=== PATIENT | male | born 2000 | race Caucasian/White ===

== ENCOUNTER 2019-06-10 22:09 | Inpatient (IN) ==
[2019-06-10 23:07] LABS: Basophils # (auto) 0.02 K/uL (0-0.2); Basophils % (auto) 0.3 %; Eosinophils # (auto) 0.09 K/uL (0-0.5); Eosinophils % (auto) 1.4 %; Hematocrit (blood only) 49.2 % (42-52); Hemoglobin 16.4 g/dL (14.0-18.0); Immature Granulocytes # (auto) 0.01 K/uL (0.00-0.02); Immature Granulocytes % (auto) 0.2 %; Lymphocytes # (auto) 1.58 K/uL (1.2-3.4); Lymphocytes % (auto) 24.6 %; Mean Corpuscular Hemoglobin 26.3 pg (25-34); Mean Corpuscular Hgb Conc 33.3 g/dL (32-36); Mean Corpuscular Volume 78.8 fL (80-100); Mean Platelet Volume 9.9 fL (7.4-10.4); Monocytes # (auto) 0.67 K/uL (0.11-0.59); Monocytes % (auto) 10.4 %; Neutrophils # (auto) 4.05 K/uL (1.4-6.5); Neutrophils % (auto) 63.1 %; Platelet Count 281 K/uL (130-400); RDW Coefficient of Variation 13.8 % (11.5-14.5); RDW Standard Deviation 39.5 fL (36.4-46.3); Red Blood Count 6.24 M/uL (4.7-6.1); White Blood Count 6.42 K/uL (4.8-10.8)
[2019-06-10 23:11] LABS: Appearance Urine Clear (Clear); Bacteria Urine Automated Negative (Negative); Bilirubin Urine Negative (Negative); Blood Urine Negative (Negative); Color Urine Dark Yellow; Glucose Urine UA Negative (Negative); Ketones Urine Negative (Negative); Leukocyte Esterase Urine Negative (Negative); Nitrite Urine Negative (Negative); Protein Urine Trace (Negative); RBC Urine Automated 0-4 /hpf (0-4); Specific Gravity Urine 1.031 (1.000-1.030); Urobilinogen Urine Negative (Negative)
[2019-06-10 23:21] LABS: Potassium 3.5 mmol/L (3.5-5.1)
[2019-06-10 23:25] LABS: Albumin Level 4.2 gm/dl (3.4-5.0); BUN Creatinine Ratio 16.3 (10-20); Calcium 9.3 mg/dl (8.5-10.1); Creatinine Clr Calc Pharmacy 143.3 ml/min; Est GFR (African American) 142.7; Est GFR (Non-African American) 123.1
[2019-06-10 23:27] LABS: Amphetamines+Metham, Urine Neg (Neg); Barbiturates, Urine Neg (Neg); Benzodiazepine, Urine Neg (Neg); Cocaine, Urine Neg (Neg); MDMA (Ecstacy), Urine Neg (Neg); Methadone, Urine Neg (Neg); Opiate, Urine Neg (Neg); Phencyclidine, Urine Neg (Neg)
[2019-06-10 23:39] LABS: Acetaminophen < 2 ug/ml (10-30); Salicylate < 1.7 mg/dl (2.8-20)
[2019-06-10] MEDS ORDERED: ONDANSETRON 4 MG OD TAB PO STA (23:40)
[2019-06-10] MEDS ORDERED: GI COCKTAIL ED USE PO ONE (23:40)
[2019-06-10 23:43] LABS: Albumin Globulin Ratio 1.3 (0.9-2); Bilirubin,Total 0.9 mg/dl (0.2-1); Globulin 3.3 gm/dl (2.5-4.0); Thyroid Stimulating Hormone 2.66 uIu/ml (0.300-4.500); Total Protein 7.5 gm/dl (6.4-8.2)
[2019-06-11] MEDS ORDERED: SODIUM CHLORIDE 0.9% 1000ML 1,000 ML IV ONE (00:15)
--- NOTE | 2019-06-11 01:18 | History & Physical Report ---
Date of Service June 11, 2019 Assessment & Plan (1) Suicidal thoughts: Patient will be admitted to the medical service, with a psychiatry consult. One-to-one observation ordered. We will continue Lexapro 5 mg daily, with other medications being held. Present on Admission?: Yes (2) Rhabdomyolysis: Patient was admitted for rhabdomyolysis from 05/05-05/06/2018. Peak CK at that time was 11,461, that did normalize to 204 on 06/04/2018. Most recent CK on 04/25/2019 was 222. CK today is 3355. Rehydrate with IV fluids. Recheck laboratories in a.m. Present on Admission?: Yes (3) Helicobacter pylori (H. pylori): Reports that he recently can treated treatment about 2 weeks ago, but is having recurring nausea symptoms at this time. For now placed on famotidine 20 mg p.o. twice daily Present on Admission?: Yes (4) Nausea: Likely combination of anxiety and H. pylori gastritis. Continue Ativan 1 mg p.o., making 3 times daily as needed. Present on Admission?: Yes History of Present Illness Chief Complaint: The patient presents to the emergency department with worsening anxiety with depression, nausea, insomnia and suicidal ideation. Primary Care Provider: [facility] The patient is a 18-year-old male with a past medical history including anxiety, depression, ADD and rhabdomyolysis, who presents to the emergency department with worsening symptoms over the past 2 weeks. He had initially presented for a mental health evaluation, laboratories revealed recurrent rhabdomyolysis, patient was referred for medical evaluation. Allergies Allergy/AdvReac Type Severity Reaction Status Date / Time lavender (Lavandula Allergy Mild Rash Unverified 04/25/19 11:51 angustifolia) Home Medications Home Medications Medication Instructions Recorded Confirmed Type dextroamphetamine-amphetamine 20 mg PO DAILY 04/25/19 06/10/19 History [Adderall XR] escitalopram oxalate [Lexapro] 5 mg PO DAILY 04/25/19 06/10/19 History lisdexamfetamine [Vyvanse] 30 mg PO DAILY 04/25/19 06/10/19 History lorazepam 1 mg PO DAILY PRN 04/25/19 06/10/19 History Past Med/Surg History Medical History ADHD Social History Preferred Language: Macedonian Communication Ability: Effective 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 Beliefs That Will Affect Care: None Current Living Situation: Alone Feels Safe at Home: No Safety Concerns: Afraid for Self Smoking Status: Never smoker Tobacco Type: cigarettes ; Hx Alcohol Use: Yes Alcohol type: hard liquor Hx Substance Use: Yes substance use type: marijuana Review of Systems Review of Systems: The patient denies chest pain, palpitations, shortness of breath, dyspnea on exertion, cough, lower extremity swelling, sore throat, fevers, chills, sweats, weight change, vomiting, pelvic pain, blood in urine or stool, dysuria, urinary frequency or urgency, lightheadedness, dizziness, headache, memory loss, loss of consciousness, rash, abnormal bruising or bleeding, imbalance, focal or generalized weakness, numbness or tingling in arms or legs, generalized arthralgias or myalgias, back or neck pain, or night sweats. The review of systems is otherwise negative other than for that already noted above, and at least 10 systems have been reviewed. Physical Exam Physical Exam: The patient is awake, alert and oriented 3, well developed and well nourished, normocephalic and atraumatic, lying in bed and in no acute distress. HEENT--PERRL, EOMI, mucous membranes and oropharynx dry. Neck--supple. No JVD. No bruits. Thyroid normal, trachea midline, no adenopathy. Heart--normal S1 and S2. No murmurs, rubs or gallops. Lungs--clear bilaterally, no respiratory distress, no accessory muscle use. Abdomen--normal bowel sounds and soft. Nontender. Nondistended, no hernias or masses, no organomegaly. Extremities--no cyanosis or clubbing. No edema. There are good distal pulses b/l. Dermatologic--normal skin turgor, normal color, no abnormal lymph nodes, no rash. Neurologic--cranial nerves II through XII grossly intact. Rheumatologic--normal range of motion. Psychiatric--normal affect. Results & Data Vital Signs (Past 12 Hours) Vital Signs Temp Pulse Pulse Resp BP BP Pulse Ox 06/11/19 00:29 86 19 127/87 98 06/10/19 22:16 98.1 F 109 H 18 156/83 H 98 Laboratory Results Laboratory Results WBC 6.42 K/uL (4.8-10.8) 06/10/19 22:51 RBC 6.24 M/uL (4.7-6.1) H 06/10/19 22:51 Hgb 16.4 g/dL (14.0-18.0) 06/10/19 22:51 Hct 49.2 % (42-52) 06/10/19 22:51 MCV 78.8 fL (80-100) L 06/10/19 22:51 MCH 26.3 pg (25-34) 06/10/19 22:51 MCHC 33.3 g/dL (32-36) 06/10/19 22:51 RDW Std Deviation 39.5 fL (36.4-46.3) 06/10/19 22:51 RDW Coeff of Noelle 13.8 % (11.5-14.5) 06/10/19 22:51 Plt Count 281 K/uL (130-400) 06/10/19 22:51 MPV 9.9 fL (7.4-10.4) 06/10/19 22:51 Immature Gran % (Auto) 0.2 % 06/10/19 22:51 Neut % (Auto) 63.1 % 06/10/19 22:51 Lymph % (Auto) 24.6 % 06/10/19 22:51 [place] % (Auto) 10.4 % 06/10/19 22:51 Eos % (Auto) 1.4 % 06/10/19 22:51 Baso % (Auto) 0.3 % 06/10/19 22:51 Immature Gran # (Auto) 0.01 K/uL (0.00-0.02) 06/10/19 22:51 Neut # (Auto) 4.05 K/uL (1.4-6.5) 06/10/19 22:51 Lymph # (Auto) 1.58 K/uL (1.2-3.4) 06/10/19 22:51 [place] # (Auto) 0.67 K/uL (0.11-0.59) H 06/10/19 22:51 Eos # (Auto) 0.09 K/uL (0-0.5) 06/10/19 22:51 Baso # (Auto) 0.02 K/uL (0-0.2) 06/10/19 22:51 Sodium 139 mmol/L (136-145) 06/10/19 22:51 Potassium 3.5 mmol/L (3.5-5.1) 06/10/19 22:51 Chloride 102 mmol/L (98-107) 06/10/19 22:51 Carbon Dioxide 28 mmol/L (21-32) 06/10/19 22:51 Anion Gap 9.0 (3-11) 06/10/19 22:51 BUN 15 mg/dl (7-18) 06/10/19 22:51 Creatinine 0.89 mg/dl (0.6-1.4) 06/10/19 22:51 Est Cr Clr Drug Dosing 143.3 ml/min 06/10/19 22:51 Est GFR ( Amer) 142.7 06/10/19 22:51 Est GFR (Non-Af Amer) 123.1 06/10/19 22:51 BUN/Creatinine Ratio 16.3 (10-20) 06/10/19 22:51 Glucose 99 mg/dl (70-99) 06/10/19 22:51 Calcium 9.3 mg/dl (8.5-10.1) 06/10/19 22:51 Total Bilirubin 0.9 mg/dl (0.2-1) 06/10/19 22:51 AST 63 U/L (15-37) H 06/10/19 22:51 ALT 86 U/L (12-78) H 06/10/19 22:51 Alkaline Phosphatase 33 U/L (45-117) L 06/10/19 22:51 Total Creatine Kinase 3355 U/L (39-308) H 06/10/19 22:51 Total Protein 7.5 gm/dl (6.4-8.2) 06/10/19 22:51 Albumin 4.2 gm/dl (3.4-5.0) 06/10/19 22:51 Globulin 3.3 gm/dl (2.5-4.0) 06/10/19 22:51 Albumin/Globulin Ratio 1.3 (0.9-2) 06/10/19 22:51 Lipase 107 U/L (73-393) 06/10/19 22:51 TSH 2.660 uIu/ml (0.300-4.500) 06/10/19 22:51 Urine Color Dark Yellow 06/10/19 22:27 Urine Appearance Clear (Clear) 06/10/19 22:27 Urine pH 6.0 (4.5-7.5) 06/10/19 22:27 Ur Specific [place] 1.031 (1.000-1.030) H 06/10/19 22:27 Urine Protein Trace (Negative) H 06/10/19 22:27 Urine Glucose (UA) Negative (Negative) 06/10/19 22:27 Urine Ketones Negative (Negative) 06/10/19 22:27 Urine Blood Negative (Negative) 06/10/19 22: Urine Nitrite Negative (Negative) 06/10/19 22: Urine Bilirubin Negative (Negative) 06/10/19 22: Urine Urobilinogen Negative (Negative) 06/10/19 22:27 Ur Leukocyte Esterase Negative (Negative) 06/10/19 22:27 Urine WBC (Auto) 1-5 /hpf (0-5) 06/10/19 22:27 Urine RBC (Auto) 0-4 /hpf (0-4) 06/10/19 22:27 U Hyaline Cast (Auto) 1-5 /lpf (0-5) 06/10/19 22:27 U Epithel Cells (Auto) 5-10 /lpf (0-5) H 06/10/19 22:27 Urine Bacteria (Auto) Negative (Negative) 06/10/19 22:27 Salicylates < 1.7 mg/dl (2.8-20) L 06/10/19 22:51 Urine Opiates Screen Neg (Neg) 06/10/19 22:27 Ur Methadone, Qual Neg (Neg) 06/10/19 22:27 Acetaminophen < 2 ug/ml (10-30) L 06/10/19 22:51 Urine Barbiturates Neg (Neg) 06/10/19 22:27 Ur Phencyclidine (PCP) Neg (Neg) 06/10/19 22:27 U Amphetamin/Meth Scrn Neg (Neg) 06/10/19 22:27 MDMA (Ecstasy) Screen Neg (Neg) 06/10/19 22:27 U Benzodiazepines Scrn Neg (Neg) 06/10/19 22:27 Ur Cocaine Metabolite Neg (Neg) 06/10/19 22:27 U Marijuana (THC) Screen Pos (Neg) H 06/10/19 22:27 Ethyl Alcohol mg/dL < 3.0 mg/dl (0-3) 06/10/19 22:51 Code Status & VTE Plan Code Status Full code VTE Prophylaxis Plan VTE Prophylaxis will be ordered: Yes PG Care Time/CCT Total # of Minutes Spent Total Time Spent with Patient: Total time spent is greater than 50% in coordination of care (as documented) at patient's floor/unit and/or counseling patient: (1) Rhabdomyolysis Rhabdomyolysis type: non-traumatic Qualified Code(s): M62.82 - Rhabdomyolysis
[2019-06-11] MEDS ORDERED: LORazepam 1 MG TAB PO STA (01:36)
--- NOTE | 2019-06-11 01:37 | Emergency Department Note ---
Entered by Mervat Marion acting as a scribe for History of Present Illness General Chief complaint: Mental Health Evaluation Stated complaint: DEPRESSION, INSOMNIA, NAUSEA, ANXIETY Time Seen by Provider: 06/10/19 22:20 Source: patient History of Present Illness Onset (ago): week(s) 2 Location: head Pain Consistency: + other (episode) Quality: + other (need for mental health evaluation) Associated symptoms: + other (positive lack of sleep; positive not eating and drinking normally; positive schoolwork "falling apart"; positive cancelling plans; positive missing appointments; positive plan to hurt himself; negative HI; positive hearing noises) The patient is a 18 year old male with PMHx of ADHD who presents to the Emergency Room with complaints of an episode of a need for a mental health evaluation that began approximately 2 weeks prior to arrival. The patient states that he recently had several health problems including H. pylori and rhabdomyolysis and was told to stop his medications by his PCP, and states that he never began these again since this time. The patient reports that he was on Sertraline, Lexapro, Adderall, and Vyvanse. He states that he is currently on no medications and states he "thinks it's hitting me all of a sudden recently". The patient states that during this time he has not been sleeping much. He reports that he is not eating and drinking well, and also states that his schoolwork is "falling apart". The patient states that he has not done any schoolwork for at least one week. The patient states that he cancelled all of his holiday plans and missed his two most recently appointments with [facility]. He reports thoughts of suicide with a "plan and method" to hurt himself with knives as he has some at home. The patient states that he thought about using a gun, but does not have access to one. The patient reports occasionally hearing some noises in the background, but denies any definite voices. He denies homicidal ideations. Home Medications Home Medications Medication Instructions Recorded Confirmed Type dextroamphetamine-amphetamine 20 mg PO DAILY 04/25/19 06/10/19 History [Adderall XR] escitalopram oxalate [Lexapro] 5 mg PO DAILY 04/25/19 06/10/19 History lisdexamfetamine [Vyvanse] 30 mg PO DAILY 04/25/19 06/10/19 History lorazepam 1 mg PO DAILY PRN 04/25/19 06/10/19 History Allergies Allergy/AdvReac Type Severity Reaction Status Date / Time lavender (Lavandula Allergy Mild Rash Unverified 04/25/19 11:51 angustifolia) Past Med/Surg History Medical History ADHD Social History Preferred Language: Macedonian Communication Ability: Effective 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 and A total of 10 systems reviewed and were otherwise negative Physical Exam Vital Signs Vital Signs - 24 hr 06/10/19 22:16 06/11/19 00:29 Temperature 36.7 C Temperature Source Oral Pulse Rate 109 H Pulse Rate [Bilateral Finger] 86 Respiratory Rate 18 19 Respiratory Effort / Characteristics Non-Labored Spontaneous Respiratory Depth Normal Respiratory Pattern Regular Blood Pressure 156/83 H Blood Pressure [Right Arm] 127/87 Blood Pressure Mean 107 Blood Pressure Mean [Right Arm] 100 Blood Pressure Position Sitting Pulse Oximetry 98 98 Oxygen Delivery Method Room Air Sepsis Recent Fever Within 48 Hours No Sepsis New/Unexplained Change in Mental Status No Sepsis Action Taken by Nursing No Action Required GENERAL: Awake, alert, in no distress HENT: Normocephalic, atraumatic. EYES: Normal conjunctiva. Sclera non-icteric. RESPIRATORY: Normal respiratory effort. CARDIAC: Normal rate. Extremities warm and well perfused. GI: Soft, non-distended. No tenderness to palpation. No rebound or guarding. NEURO: Normal sensorium. No sensory or motor deficits noted. No facial droop. PSYCH: Endorses SI with plan. Denies HI. Denies visual hallucination but states he occasionally hears muffled voices. Flat affect. SKIN: Warm and dry. No rash or jaundice noted. Course Course 223: Past medical records reviewed. The patient was evaluated in room A6. A complete history and physical exam was performed. 0035: I discussed the case with Dr. Spencer-[facility] Hospitalist who accepts the patient for further evaluation. Administered Medications Discontinued Medications Al Hydrox/Mg Hydrox/Simethicone () 1 dose PO ONE ONE Stop: 06/10/19 23:41 Last Admin: 06/10/19 23:47 Dose: 1 dose Documented by: [id number] Sodium Chloride (Nss 1000ml) 1,000 mls @ 999 mls/hr IV .Q1H1M ONE Stop: 06/11/19 01:15 Last Infusion: 06/11/19 01:20 Dose: 0 mls/hr Documented by: [id number] Admin: 06/11/19 00:27 Dose: 999 mls/hr Documented by: [id number] Ondansetron HCl (Zofran Odt) 4 mg PO NOW STA Stop: 06/10/19 23:41 Last Admin: 06/10/19 23:47 Dose: 4 mg Documented by: [id number] Medical Decision Making Differential Diagnosis Differential diagnoses considered include mood disorder, infection, hypoglycem ia, electrolyte abnormalities, cardiac sources, intracerebral event, toxicologic, neurologic, as well as others. Medical Records Attestation: I reviewed the patient's medical records. Home Medications Current Medication List: was personally reviewed by me Laboratory Data Attestation: I reviewed the patient's lab results. Result diagrams: 06/10/19 22:51 06/10/19 22:51 Lab Results 06/10/19 06/10/19 06/10/19 Range/Units 22:27 22:27 22:51 WBC 6.42 (4.8-10.8) K/uL RBC 6.24 H (4.7-6.1) M/uL Hgb 16.4 (14.0-18.0) g/dL Hct 49.2 (42-52) % MCV 78.8 L (80-100) fL MCH 26.3 (25-34) pg MCHC 33.3 (32-36) g/dL RDW Std Deviation 39.5 (36.4-46.3) fL RDW Coeff of Noelle 13.8 (11.5-14.5) % Plt Count 281 (130-400) K/uL MPV 9.9 (7.4-10.4) fL Immature Gran % (Auto) 0.2 % Neut % (Auto) 63.1 % Lymph % (Auto) 24.6 % [place] % (Auto) 10.4 % Eos % (Auto) 1.4 % Baso % (Auto) 0.3 % Immature Gran # (Auto) 0.01 (0.00-0.02) K/uL Neut # (Auto) 4.05 (1.4-6.5) K/uL Lymph # (Auto) 1.58 (1.2-3.4) K/uL [place] # (Auto) 0.67 H (0.11-0.59) K/uL Eos # (Auto) 0.09 (0-0.5) K/uL Baso # (Auto) 0.02 (0-0.2) K/uL Sodium (136-145) mmol/L Potassium (3.5-5.1) mmol/L Chloride (98-107) mmol/L Carbon Dioxide (21-32) mmol/L Anion Gap (3-11) BUN (7-18) mg/dl Creatinine (0.6-1.4) mg/dl Est Cr Clr Drug Dosing ml/min Est GFR ( Amer) Est GFR (Non-Af Amer) BUN/Creatinine Ratio (10-20) Glucose (70-99) mg/dl Calcium (8.5-10.1) mg/dl Total Bilirubin (0.2-1) mg/dl AST (15-37) U/L ALT (12-78) U/L Alkaline Phosphatase (45-117) U/L Total Creatine Kinase (39-308) U/L Total Protein (6.4-8.2) gm/dl Albumin (3.4-5.0) gm/dl Globulin (2.5-4.0) gm/dl Albumin/Globulin Ratio (0.9-2) Lipase (73-393) U/L TSH (0.300-4.500) uIu/ml Urine Color Dark Yellow Urine Appearance Clear (Clear) Urine pH 6.0 (4.5-7.5) Ur Specific [place] 1.031 H (1.000-1.030) Urine Protein Trace H (Negative) Urine Glucose (UA) Negative (Negative) Urine Ketones Negative (Negative) Urine Blood Negative (Negative) Urine Nitrite Negative (Negative) Urine Bilirubin Negative (Negative) Urine Urobilinogen Negative (Negative) Ur Leukocyte Esterase Negative (Negative) Urine WBC (Auto) 1-5 (0-5) /hpf Urine RBC (Auto) 0-4 (0-4) /hpf U Hyaline Cast (Auto) 1-5 (0-5) /lpf U Epithel Cells (Auto) 5-10 H (0-5) /lpf Urine Bacteria (Auto) Negative (Negative) Salicylates (2.8-20) mg/dl Urine Opiates Screen Neg (Neg) Ur Methadone, Qual Neg (Neg) Acetaminophen (10-30) ug/ml Urine Barbiturates Neg (Neg) Ur Phencyclidine (PCP) Neg (Neg) U Amphetamin/Meth Scrn Neg (Neg) MDMA (Ecstasy) Screen Neg (Neg) U Benzodiazepines Scrn Neg (Neg) Ur Cocaine Metabolite Neg (Neg) U Marijuana (THC) Screen Pos H (Neg) Ethyl Alcohol mg/dL (0-3) mg/dl 06/10/19 06/10/19 06/10/19 Range/Units 22:51 22:51 22:51 WBC (4.8-10.8) K/uL RBC (4.7-6.1) M/uL Hgb (14.0-18.0) g/dL Hct (42-52) % MCV (80-100) fL MCH (25-34) pg MCHC (32-36) g/dL RDW Std Deviation (36.4-46.3) fL RDW Coeff of Noelle (11.5-14.5) % Plt Count (130-400) K/uL MPV (7.4-10.4) fL Immature Gran % (Auto) % Neut % (Auto) % Lymph % (Auto) % [place] % (Auto) % Eos % (Auto) % Baso % (Auto) % Immature Gran # (Auto) (0.00-0.02) K/uL Neut # (Auto) (1.4-6.5) K/uL Lymph # (Auto) (1.2-3.4) K/uL [place] # (Auto) (0.11-0.59) K/uL Eos # (Auto) (0-0.5) K/uL Baso # (Auto) (0-0.2) K/uL Sodium 139 (136-145) mmol/L Potassium 3.5 (3.5-5.1) mmol/L Chloride 102 (98-107) mmol/L Carbon Dioxide 28 (21-32) mmol/L Anion Gap 9.0 (3-11) BUN 15 (7-18) mg/dl Creatinine 0.89 (0.6-1.4) mg/dl Est Cr Clr Drug Dosing 143.3 ml/min Est GFR ( Amer) 142.7 Est GFR (Non-Af Amer) 123.1 BUN/Creatinine Ratio 16.3 (10-20) Glucose 99 (70-99) mg/dl Calcium 9.3 (8.5-10.1) mg/dl Total Bilirubin 0.9 (0.2-1) mg/dl AST 63 H (15-37) U/L ALT 86 H (12-78) U/L Alkaline Phosphatase 33 L (45-117) U/L Total Creatine Kinase 3355 H (39-308) U/L Total Protein 7.5 (6.4-8.2) gm/dl Albumin 4.2 (3.4-5.0) gm/dl Globulin 3.3 (2.5-4.0) gm/dl Albumin/Globulin Ratio 1.3 (0.9-2) Lipase 107 (73-393) U/L TSH 2.660 (0.300-4.500) uIu/ml Urine Color Urine Appearance (Clear) Urine pH (4.5-7.5) Ur Specific [place] (1.000-1.030) Urine Protein (Negative) Urine Glucose (UA) (Negative) Urine Ketones (Negative) Urine Blood (Negative) Urine Nitrite (Negative) Urine Bilirubin (Negative) Urine Urobilinogen (Negative) Ur Leukocyte Esterase (Negative) Urine WBC (Auto) (0-5) /hpf Urine RBC (Auto) (0-4) /hpf U Hyaline Cast (Auto) (0-5) /lpf U Epithel Cells (Auto) (0-5) /lpf Urine Bacteria (Auto) (Negative) Salicylates < 1.7 L (2.8-20) mg/dl Urine Opiates Screen (Neg) Ur Methadone, Qual (Neg) Acetaminophen < 2 L (10-30) ug/ml Urine Barbiturates (Neg) Ur Phencyclidine (PCP) (Neg) U Amphetamin/Meth Scrn (Neg) MDMA (Ecstasy) Screen (Neg) U Benzodiazepines Scrn (Neg) Ur Cocaine Metabolite (Neg) U Marijuana (THC) Screen (Neg) Ethyl Alcohol mg/dL < 3.0 (0-3) mg/dl Blood Pressure Blood Pressure Findings: Elevated blood pressure Blood Pressure Disposition: elevated BP felt to be situational MDM Narrative Patient is a 18-year-old gentleman with a history of ADHD as well as depression issues presenting today for mental health evaluation. Patient states that he is feeling unsafe and having thoughts of harming himself. Patient states he been off his medications for several weeks. Has followed with counselors and psychiatry. Previously on several medications stopped abruptly as he felt he was doing better several weeks ago. Decreased sleep and more apathetic. States he has some thoughts of possibly using ice to harm himself. States he has knives at his residence. Denies prior attempts. Denies prior inpatient treatment. Denies any HI. Questionably some muffled sounds for hallucinations. Medical clearance was completed. States he recently underwent treatment for H. pylori and rhabdomyolysis. Benign exam. Given the chronicity of his symptoms or suspicion for acute intra-abdominal surgical pathology. Labs show evidence of a increased CPK of just over 3000. AST and ALT are also slightly elevated. No evidence of significant thyroid dysfunction. No bilirubin elevation. No leukocytosis noted. Patient given some Zofran and GI cocktail as he does report a little bit of nausea here. Given concerning findings of recurrent rhabdomyolysis, discussed with the patient further and reviewed old records when he was admitted here in April 2018. At that time attributed to exertional rhabdo from working out. Patient states that he that he has no significant myalgia symptoms. States he exercised twice last week and took away protein each day but denies other significant stimulants or supplements. Unsure that we can truly relate all of his symptoms to exertional rhabdomyolysis given the lack of exertion and his history today. Could be related to his decreased intake. Given this believe he requires some further medical care prior to psychiatric admission for hydration and normalization of CPK. Discussed with hospitalist. Will require one-to-one sitter on floor. Impression & Plan Suicidal thoughts, Rhabdomyolysis, Nausea Discharge Plan Visit Data Chief Complaint: Mental Health Evaluation Stated Complaint: DEPRESSION, INSOMNIA, NAUSEA, ANXIETY ED Provider: David Desai Discharge Problem: Suicidal thoughts, Rhabdomyolysis, Nausea Patient Disposition: Being Evaluated by Hospitalist Forms Stand Alone Forms: My [facility], Suicide Prevention Resources Prescriptions Prescriptions: No Action dextroamphetamine-amphetamine [Adderall XR] 20 mg capsule,extended release 24hr 20 mg PO DAILY RF: 0 lorazepam 1 mg tablet 1 mg PO DAILY PRN (Reason: Anxiety) RF: 0 escitalopram oxalate [Lexapro] 5 mg tablet 5 mg PO DAILY RF: 0 Vyvanse 30 mg capsule 30 mg PO DAILY RF: 0 Referrals Referrals: [place],[facility] [Primary Care Provider] - Discharge Problem: Rhabdomyolysis Qualifiers: Rhabdomyolysis type: non-traumatic Qualified Code(s): M62.82 - Rhabdomyolysis The scribe's documentation has been prepared under my direction and personally reviewed by me in its entirety. I confirm that the note above accurately refle cts all work, treatment, procedures, and medical decision making performed by me.
[2019-06-11] MEDS ORDERED: LORazepam 1 MG TAB ONE (01:38)
[2019-06-11] MEDS ORDERED: ALUMINUM/MAGNESIUM SUSP 30 ML UDC PO PRN (03:09)
[2019-06-11] MEDS ORDERED: MAGNESIUM HYDROXIDE SUSP 30 ML UDC PO PRN (03:09)
[2019-06-11 03:33] LABS: Basophils # (auto) 0.03 K/uL (0-0.2); Basophils % (auto) 0.4 %; Eosinophils # (auto) 0.13 K/uL (0-0.5); Eosinophils % (auto) 1.9 %; Hematocrit (blood only) 45.5 % (42-52); Immature Granulocytes # (auto) 0.01 K/uL (0.00-0.02); Immature Granulocytes % (auto) 0.1 %; Lymphocytes # (auto) 2.26 K/uL (1.2-3.4); Lymphocytes % (auto) 33.5 %; Mean Corpuscular Hemoglobin 26.6 pg (25-34); Mean Corpuscular Volume 80.7 fL (80-100); Mean Platelet Volume 9.6 fL (7.4-10.4); Monocytes # (auto) 0.73 K/uL (0.11-0.59); Monocytes % (auto) 10.8 %; Neutrophils # (auto) 3.59 K/uL (1.4-6.5); Neutrophils % (auto) 53.3 %; Platelet Count 273 K/uL (130-400); RDW Coefficient of Variation 13.9 % (11.5-14.5); RDW Standard Deviation 41.1 fL (36.4-46.3); Red Blood Count 5.64 M/uL (4.7-6.1); White Blood Count 6.75 K/uL (4.8-10.8)
[2019-06-11] MEDS: NSS + 20MEQ KCL 20 MEQ/1,000 ML BAG IV SCH ×3 (04:04→16:57)
[2019-06-11 04:05] LABS: Albumin Globulin Ratio 1.3 (0.9-2); Albumin Level 3.8 gm/dl (3.4-5.0); BUN Creatinine Ratio 12.2 (10-20); Bilirubin,Total 1.2 mg/dl (0.2-1); Calcium 8.6 mg/dl (8.5-10.1); Est GFR (African American) 112.6; Est GFR (Non-African American) 97.2; Potassium 4.1 mmol/L (3.5-5.1); Total Protein 6.8 gm/dl (6.4-8.2)
[2019-06-11] MEDS: ESCITALOPRAM OXALATE 10 MG TAB PO SCH (08:04)
[2019-06-11] MEDS: FAMOTIDINE 20 MG TAB PO SCH ×2 (08:04→20:27)
[2019-06-11 10:12] LABS: Ferritin 18.9 ng/ml (8-388)
[2019-06-11] MEDS: ONDANSETRON INJ 2 MG/ML 2 ML VIAL IV PRN (12:07)
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
--- NOTE | 2019-06-11 13:51 | Hospitalist Progress Note ---
Date of Service June 11, 2019 Assessment & Plan (1) Suicidal thoughts: * Continue to monitor on medical floor * 1:1 observation * 201 vs 302 as patient states he is agreeable to inpatient treatment, however states he must have access to computer for scholarship paperwork * We will continue Lexapro 5 mg daily, with other medications being held. * Psych consult-- appreciate recs * As patient was successful on lamictal in the past, may consider re- initiating?? (2) Rhabdomyolysis: * Patient was admitted for rhabdomyolysis from 05/05-05/06/2018. * Peak CK at that time was 11,461, that did normalize to 204 on 06/04/2018. * Most recent CK on 04/25/2019 was 222. * CK today is 3355 -- repeat trending down, at 2692 * Rehydrate with IV fluids. * Continue to monitor (3) Helicobacter pylori (H. pylori): * Reports that he was treated 2 weeks ago and finished treatment 2 days ago -- having recurring nausea symptoms at this time, requiring zofran * For now placed on famotidine 20 mg p.o. twice daily (4) Nausea: * Likely combination of anxiety and H. pylori gastritis. * Continue Ativan 1 mg p.o., making 3 times daily as needed. (5) Increased bilirubin level: * Denies any past family or personal history of Gilbert's or other disorders * T bili 1.2 today, previously 0.9 * RUQ ultrasound pending (6) ADHD: * Holding home vyvanse and adderall (7) Depression: * Continue lexapro 5mg as above (8) Microcytic anemia: * MCV 80.7 today, however patient with MCV 76-78 since April 2018 * Iron 145, Transferrin 274, Transferrin % sat 37, ferritin 18.9 -- iron def d/t borderline low ferritin (would expect >40) * However, FOCB positive -- denies any melena/hematochezia -- will need work-up outpatient with GI * ??Underlying thalassemia -- alpha trait -- outpatient hemoglobin electrophoresis?? (9) DVT prophylaxis: * Low risk * Encourage ambulation Dispo: rehydration with likely 201 vs 302 for inpatient treatment once medically stable Supervising Physician Co-Signing Physician Notes Attending Attestation: Chart reviewed in detail, care plan d/w ELKIN Santillan. I agree w/ the hodgson components of her documentation. Pt w/ suicidal ideation in setting of depression. Also with mild rhabdomyolysis - 2nd to weight training? Abnormal LFTs - etiology uncertain - liver u/s negative; consider viral hep studies. Recent Rx for H. Pylori - based on breath testing? Now that he completed triple-therapy recommend H. Pylori stool Ag to ensure eradication. Cont hydration. Luis Anne MD Subjective Patient evaluated at bedside this morning. He states he continues to have nausea, anxiety, and feelings of wanting to vomit but has not done so at this time. He states has been feeling crampy over the past two weeks. He also reports decreased sleep and appetite. He states he was treated 3 weeks ago for rhabdo and h. pylori with doxy/metronidazole and PPI (he believes omeprazole) and was told his rhabdo was cleared. He states he did not have repeat testing for his h/pylori, but states he only started the treatment 2 weeks ago and finished about two days ago. He states he was supposed to get an ultrasound for his liver, but never did. He state he had previously been on lamictal in the past, but this was discontinued due to "misdiagnosis of bipolar disorder". He states this previously was very effective at 50mg. Since then, he had been on sertraline in the past and was recently switched a month ago to lexapro due to hot flashes. He states that the nausea began when he started taking the lexapro, and he stopped taking it a month ago after discussion with his physician due to sexual dysfunction. He states he had been taking it for only 1 week time and no further discussion of a different SSRI/antidepressant was had. 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 He states he also has scholarships he has to have access to his laptop to complete or his education will be in jeopardy. He states he does have continued suicidal ideation, and had previously attempted suicide five years ago prior to coming to the [place] He also admits to smoking more marijuana recently, daily for the past 2-3 months and has had visual hallucinations. He describes them as "shadows" that have become more frequent over the past week. He states he did have similar hallucinations/"shadows" back when he had a concussion six months ago. He also states he has had repeated episodes of waking up at night feeling like he is choking and is paralyzed. He states he has gotten lightheaded when standing up, but denies any syncope or blurred vision. Review of Systems Constitutional: + body aches, + fatigue, + anorexia and + insomnia Respiratory: no cough and no dyspnea Cardiovascular: no chest pain and no palpitations Gastrointestinal: + abdominal pain (eipgastric/RUQ) and + nausea; no vomiting, no constipation and no diarrhea/loose stools Physical Exam ENMT: extensive cobblestoning posterior oropharynx Neck: trachea midline, no thyromegaly Respiratory: normal respiratory effort, lungs clear to auscultation Cardiovascular: RRR, no murmur, no edema Gastrointestinal (Abdomen): Inspection/Auscultation: normal bowel sounds; abdomen not distended Percussion/Palpation: + abdomen tender (epigastric and RUQ) and abdomen soft; no guarding, abdomen not rigid and no hepatosplenomegaly Psychiatric: Affect: + anxious affect Mood: + depressed mood and + anxious mood Suicidal Thoughts: + reports suicidal thoughts Results & Data Vital Signs (Past 12 Hours) Vital Signs Temp Pulse Pulse Resp BP BP Pulse Ox 06/11/19 07:04 36.7 C 90 16 120/67 99 06/11/19 02:54 82 19 125/84 98 Laboratory Results 06/11/19 06/11/19 06/11/19 Range/Units 12:32 03:22 03:22 WBC 6.75 (4.8-10.8) K/uL RBC 5.64 (4.7-6.1) M/uL Hgb 15.0 (14.0-18.0) g/dL Hct 45.5 (42-52) % MCV 80.7 (80-100) fL MCH 26.6 (25-34) pg MCHC 33.0 (32-36) g/dL RDW Std Deviation 41.1 (36.4-46.3) fL RDW Coeff of Noelle 13.9 (11.5-14.5) % Plt Count 273 (130-400) K/uL MPV 9.6 (7.4-10.4) fL Immature Gran % (Auto) 0.1 % Neut % (Auto) 53.3 % Lymph % (Auto) 33.5 % Hardeman % (Auto) 10.8 % Eos % (Auto) 1.9 % Baso % (Auto) 0.4 % Immature Gran # (Auto) 0.01 (0.00-0.02) K/uL Neut # (Auto) 3.59 (1.4-6.5) K/uL Lymph # (Auto) 2.26 (1.2-3.4) K/uL Hardeman # (Auto) 0.73 H (0.11-0.59) K/uL Eos # (Auto) 0.13 (0-0.5) K/uL Baso # (Auto) 0.03 (0-0.2) K/uL Sodium (136-145) mmol/L Potassium (3.5-5.1) mmol/L Chloride (98-107) mmol/L Carbon Dioxide (21-32) mmol/L Anion Gap (3-11) BUN (7-18) mg/dl Creatinine (0.6-1.4) mg/dl Est Cr Clr Drug Dosing ml/min Est GFR ( Amer) Est GFR (Non-Af Amer) BUN/Creatinine Ratio (10-20) Glucose (70-99) mg/dl Calcium (8.5-10.1) mg/dl Iron 145 (35-175) mcg/dl Transferrin 274 (200-360) mg/dl Transferrin % Sat 37 (20-50) % Ferritin 18.9 (8-388) ng/ml Total Bilirubin (0.2-1) mg/dl AST (15-37) U/L ALT (12-78) U/L Alkaline Phosphatase (45-117) U/L Total Creatine Kinase (39-308) U/L Total Protein (6.4-8.2) gm/dl Albumin (3.4-5.0) gm/dl Globulin (2.5-4.0) gm/dl Albumin/Globulin Ratio (0.9-2) Lipase (73-393) U/L TSH (0.300-4.500) uIu/ml Urine Color Urine Appearance (Clear) Urine pH (4.5-7.5) Ur Specific [place] (1.000-1.030) Urine Protein (Negative) Urine Glucose (UA) (Negative) Urine Ketones (Negative) Urine Blood (Negative) Urine Nitrite (Negative) Urine Bilirubin (Negative) Urine Urobilinogen (Negative) Ur Leukocyte Esterase (Negative) Urine WBC (Auto) (0-5) /hpf Urine RBC (Auto) (0-4) /hpf U Hyaline Cast (Auto) (0-5) /lpf U Epithel Cells (Auto) (0-5) /lpf Urine Bacteria (Auto) (Negative) Stool Occult Bld Scrn Positive A (Negative) Salicylates (2.8-20) mg/dl Urine Opiates Screen (Neg) Ur Methadone, Qual (Neg) Acetaminophen (10-30) ug/ml Urine Barbiturates (Neg) Ur Phencyclidine (PCP) (Neg) U Amphetamin/Meth Scrn (Neg) MDMA (Ecstasy) Screen (Neg) U Benzodiazepines Scrn (Neg) Ur Cocaine Metabolite (Neg) U Marijuana (THC) Screen (Neg) U Marijuana THC Carboxy Ethyl Alcohol mg/dL (0-3) mg/dl 06/11/19 06/10/19 06/10/19 Range/Units 03:22 22:51 22:51 WBC (4.8-10.8) K/uL RBC (4.7-6.1) M/uL Hgb (14.0-18.0) g/dL Hct (42-52) % MCV (80-100) fL MCH (25-34) pg MCHC (32-36) g/dL RDW Std Deviation (36.4-46.3) fL RDW Coeff of Noelle (11.5-14.5) % Plt Count (130-400) K/uL MPV (7.4-10.4) fL Immature Gran % (Auto) % Neut % (Auto) % Lymph % (Auto) % Hardeman % (Auto) % Eos % (Auto) % Baso % (Auto) % Immature Gran # (Auto) (0.00-0.02) K/uL Neut # (Auto) (1.4-6.5) K/uL Lymph # (Auto) (1.2-3.4) K/uL Hardeman # (Auto) (0.11-0.59) K/uL Eos # (Auto) (0-0.5) K/uL Baso # (Auto) (0-0.2) K/uL Sodium 138 (136-145) mmol/L Potassium 4.1 D (3.5-5.1) mmol/L Chloride 104 (98-107) mmol/L Carbon Dioxide 30 (21-32) mmol/L Anion Gap 4.0 (3-11) BUN 13 (7-18) mg/dl Creatinine 1.09 (0.6-1.4) mg/dl Est Cr Clr Drug Dosing 117.0 ml/min Est GFR ( Amer) 112.6 Est GFR (Non-Af Amer) 97.2 BUN/Creatinine Ratio 12.2 (10-20) Glucose 109 H (70-99) mg/dl Calcium 8.6 (8.5-10.1) mg/dl Iron (35-175) mcg/dl Transferrin (200-360) mg/dl Transferrin % Sat (20-50) % Ferritin (8-388) ng/ml Total Bilirubin 1.2 H (0.2-1) mg/dl AST 54 H (15-37) U/L ALT 76 (12-78) U/L Alkaline Phosphatase 30 L (45-117) U/L Total Creatine Kinase 2692 H (39-308) U/L Total Protein 6.8 (6.4-8.2) gm/dl Albumin 3.8 (3.4-5.0) gm/dl Globulin 3.0 (2.5-4.0) gm/dl Albumin/Globulin Ratio 1.3 (0.9-2) Lipase (73-393) U/L TSH (0.300-4.500) uIu/ml Urine Color Urine Appearance (Clear) Urine pH (4.5-7.5) Ur Specific [place] (1.000-1.030) Urine Protein (Negative) Urine Glucose (UA) (Negative) Urine Ketones (Negative) Urine Blood (Negative) Urine Nitrite (Negative) Urine Bilirubin (Negative) Urine Urobilinogen (Negative) Ur Leukocyte Esterase (Negative) Urine WBC (Auto) (0-5) /hpf Urine RBC (Auto) (0-4) /hpf U Hyaline Cast (Auto) (0-5) /lpf U Epithel Cells (Auto) (0-5) /lpf Urine Bacteria (Auto) (Negative) Stool Occult Bld Scrn (Negative) Salicylates < 1.7 L (2.8-20) mg/dl Urine Opiates Screen (Neg) Ur Methadone, Qual (Neg) Acetaminophen < 2 L (10-30) ug/ml Urine Barbiturates (Neg) Ur Phencyclidine (PCP) (Neg) U Amphetamin/Meth Scrn (Neg) MDMA (Ecstasy) Screen (Neg) U Benzodiazepines Scrn (Neg) Ur Cocaine Metabolite (Neg) U Marijuana (THC) Screen (Neg) U Marijuana THC Carboxy Ethyl Alcohol mg/dL < 3.0 (0-3) mg/dl 06/10/19 06/10/19 06/10/19 Range/Units 22:51 22:51 22:27 WBC 6.42 (4.8-10.8) K/uL RBC 6.24 H (4.7-6.1) M/uL Hgb 16.4 (14.0-18.0) g/dL Hct 49.2 (42-52) % MCV 78.8 L (80-100) fL MCH 26.3 (25-34) pg MCHC 33.3 (32-36) g/dL RDW Std Deviation 39.5 (36.4-46.3) fL RDW Coeff of Noelle 13.8 (11.5-14.5) % Plt Count 281 (130-400) K/uL MPV 9.9 (7.4-10.4) fL Immature Gran % (Auto) 0.2 % Neut % (Auto) 63.1 % Lymph % (Auto) 24.6 % Hardeman % (Auto) 10.4 % Eos % (Auto) 1.4 % Baso % (Auto) 0.3 % Immature Gran # (Auto) 0.01 (0.00-0.02) K/uL Neut # (Auto) 4.05 (1.4-6.5) K/uL Lymph # (Auto) 1.58 (1.2-3.4) K/uL Hardeman # (Auto) 0.67 H (0.11-0.59) K/uL Eos # (Auto) 0.09 (0-0.5) K/uL Baso # (Auto) 0.02 (0-0.2) K/uL Sodium 139 (136-145) mmol/L Potassium 3.5 (3.5-5.1) mmol/L Chloride 102 (98-107) mmol/L Carbon Dioxide 28 (21-32) mmol/L Anion Gap 9.0 (3-11) BUN 15 (7-18) mg/dl Creatinine 0.89 (0.6-1.4) mg/dl Est Cr Clr Drug Dosing 143.3 ml/min Est GFR ( Amer) 142.7 Est GFR (Non-Af Amer) 123.1 BUN/Creatinine Ratio 16.3 (10-20) Glucose 99 (70-99) mg/dl Calcium 9.3 (8.5-10.1) mg/dl Iron (35-175) mcg/dl Transferrin (200-360) mg/dl Transferrin % Sat (20-50) % Ferritin (8-388) ng/ml Total Bilirubin 0.9 (0.2-1) mg/dl AST 63 H (15-37) U/L ALT 86 H (12-78) U/L Alkaline Phosphatase 33 L (45-117) U/L Total Creatine Kinase 3355 H (39-308) U/L Total Protein 7.5 (6.4-8.2) gm/dl Albumin 4.2 (3.4-5.0) gm/dl Globulin 3.3 (2.5-4.0) gm/dl Albumin/Globulin Ratio 1.3 (0.9-2) Lipase 107 (73-393) U/L TSH 2.660 (0.300-4.500) uIu/ml Urine Color Urine Appearance (Clear) Urine pH (4.5-7.5) Ur Specific [place] (1.000-1.030) Urine Protein (Negative) Urine Glucose (UA) (Negative) Urine Ketones (Negative) Urine Blood (Negative) Urine Nitrite (Negative) Urine Bilirubin (Negative) Urine Urobilinogen (Negative) Ur Leukocyte Esterase (Negative) Urine WBC (Auto) (0-5) /hpf Urine RBC (Auto) (0-4) /hpf U Hyaline Cast (Auto) (0-5) /lpf U Epithel Cells (Auto) (0-5) /lpf Urine Bacteria (Auto) (Negative) Stool Occult Bld Scrn (Negative) Salicylates (2.8-20) mg/dl Urine Opiates Screen (Neg) Ur Methadone, Qual (Neg) Acetaminophen (10-30) ug/ml Urine Barbiturates (Neg) Ur Phencyclidine (PCP) (Neg) U Amphetamin/Meth Scrn (Neg) MDMA (Ecstasy) Screen (Neg) U Benzodiazepines Scrn (Neg) Ur Cocaine Metabolite (Neg) U Marijuana (THC) Screen (Neg) U Marijuana THC Carboxy Pending Ethyl Alcohol mg/dL (0-3) mg/dl 06/10/19 06/10/19 Range/Units 22:27 22:27 WBC (4.8-10.8) K/uL RBC (4.7-6.1) M/uL Hgb (14.0-18.0) g/dL Hct (42-52) % MCV (80-100) fL MCH (25-34) pg MCHC (32-36) g/dL RDW Std Deviation (36.4-46.3) fL RDW Coeff of Noelle (11.5-14.5) % Plt Count (130-400) K/uL MPV (7.4-10.4) fL Immature Gran % (Auto) % Neut % (Auto) % Lymph % (Auto) % Hardeman % (Auto) % Eos % (Auto) % Baso % (Auto) % Immature Gran # (Auto) (0.00-0.02) K/uL Neut # (Auto) (1.4-6.5) K/uL Lymph # (Auto) (1.2-3.4) K/uL Hardeman # (Auto) (0.11-0.59) K/uL Eos # (Auto) (0-0.5) K/uL Baso # (Auto) (0-0.2) K/uL Sodium (136-145) mmol/L Potassium (3.5-5.1) mmol/L Chloride (98-107) mmol/L Carbon Dioxide (21-32) mmol/L Anion Gap (3-11) BUN (7-18) mg/dl Creatinine (0.6-1.4) mg/dl Est Cr Clr Drug Dosing ml/min Est GFR ( Amer) Est GFR (Non-Af Amer) BUN/Creatinine Ratio (10-20) Glucose (70-99) mg/dl Calcium (8.5-10.1) mg/dl Iron (35-175) mcg/dl Transferrin (200-360) mg/dl Transferrin % Sat (20-50) % Ferritin (8-388) ng/ml Total Bilirubin (0.2-1) mg/dl AST (15-37) U/L ALT (12-78) U/L Alkaline Phosphatase (45-117) U/L Total Creatine Kinase (39-308) U/L Total Protein (6.4-8.2) gm/dl Albumin (3.4-5.0) gm/dl Globulin (2.5-4.0) gm/dl Albumin/Globulin Ratio (0.9-2) Lipase (73-393) U/L TSH (0.300-4.500) uIu/ml Urine Color Dark Yellow Urine Appearance Clear (Clear) Urine pH 6.0 (4.5-7.5) Ur Specific [place] 1.031 H (1.000-1.030) Urine Protein Trace H (Negative) Urine Glucose (UA) Negative (Negative) Urine Ketones Negative (Negative) Urine Blood Negative (Negative) Urine Nitrite Negative (Negative) Urine Bilirubin Negative (Negative) Urine Urobilinogen Negative (Negative) Ur Leukocyte Esterase Negative (Negative) Urine WBC (Auto) 1-5 (0-5) /hpf Urine RBC (Auto) 0-4 (0-4) /hpf U Hyaline Cast (Auto) 1-5 (0-5) /lpf U Epithel Cells (Auto) 5-10 H (0-5) /lpf Urine Bacteria (Auto) Negative (Negative) Stool Occult Bld Scrn (Negative) Salicylates (2.8-20) mg/dl Urine Opiates Screen Neg (Neg) Ur Methadone, Qual Neg (Neg) Acetaminophen (10-30) ug/ml Urine Barbiturates Neg (Neg) Ur Phencyclidine (PCP) Neg (Neg) U Amphetamin/Meth Scrn Neg (Neg) MDMA (Ecstasy) Screen Neg (Neg) U Benzodiazepines Scrn Neg (Neg) Ur Cocaine Metabolite Neg (Neg) U Marijuana (THC) Screen Pos H (Neg) U Marijuana THC Carboxy Ethyl Alcohol mg/dL (0-3) mg/dl PG Care Time/CCT Total # of Minutes Spent Total Time Spent with Patient: Total time spent is greater than 50% in coordinat ion of care (as documented) at patient's floor/unit and/or counseling patient: (1) Rhabdomyolysis Rhabdomyolysis type: non-traumatic Qualified Code(s): M62.82 - Rhabdomyolysis
[2019-06-11] MEDS: LORazepam 1 MG TAB PO PRN (20:27)
[2019-06-12] MEDS: NSS + 20MEQ KCL 20 MEQ/1,000 ML BAG IV SCH ×4 (00:27→19:09)
--- NOTE | 2019-06-12 07:09 | Ultrasound Report ---
ULTRASOUND RIGHT UPPER QUADRANT ABDOMEN CLINICAL HISTORY: Right upper quadrant abdominal pain. Nausea and anorexia. COMPARISON STUDY: No priors. TECHNIQUE: Real-time, grayscale, and color flow sonography of the right upper quadrant of the abdomen was performed. Images are reviewed in the transverse and longitudinal planes. FINDINGS: Liver: The liver is normal in size and echotexture. There is no intrahepatic biliary ductal dilatatio n. The main portal vein is patent. Gallbladder: The gallbladder is normal in appearance. No gallstones are identified. There is no gallb ladder wall thickening or pericholecystic fluid. A sonographic Merchant's sign is reportedly absent. Th e common bile duct measures up to 0.3 cm in diameter. Pancreas: Visualized portions of the pancreatic head and body are normal in appearance. The splenic v ein is patent. Right kidney: Survey images of the right kidney demonstrate normal size and echotexture. There is no hydronephrosis. Ascites: None. IMPRESSION: No acute sonographic abnormality is identified in the right upper quadrant. No gallstones are seen. Electronically signed by: Tristian Santamaria M.D. 06/12/2019 7:07 AM
[2019-06-12 07:37] LABS: Basophils # (auto) 0.03 K/uL (0-0.2); Basophils % (auto) 0.6 %; Eosinophils # (auto) 0.09 K/uL (0-0.5); Eosinophils % (auto) 1.7 %; Hematocrit (blood only) 46.3 % (42-52); Hemoglobin 15.3 g/dL (14.0-18.0); Lymphocytes # (auto) 1.57 K/uL (1.2-3.4); Lymphocytes % (auto) 29.2 %; Mean Corpuscular Hemoglobin 26.7 pg (25-34); Mean Corpuscular Volume 80.9 fL (80-100); Mean Platelet Volume 9.4 fL (7.4-10.4); Monocytes # (auto) 0.57 K/uL (0.11-0.59); Monocytes % (auto) 10.6 %; Neutrophils # (auto) 3.12 K/uL (1.4-6.5); Neutrophils % (auto) 57.9 %; Platelet Count 259 K/uL (130-400); RDW Coefficient of Variation 13.7 % (11.5-14.5); RDW Standard Deviation 40.7 fL (36.4-46.3); Red Blood Count 5.72 M/uL (4.7-6.1); White Blood Count 5.38 K/uL (4.8-10.8)
[2019-06-12 08:13] LABS: Potassium 4.4 mmol/L (3.5-5.1)
[2019-06-12 08:14] LABS: Albumin Level 3.8 gm/dl (3.4-5.0); Calcium 9.3 mg/dl (8.5-10.1); Creatinine Clr Calc Pharmacy 138.9 ml/min; Est GFR (African American) 139.1
[2019-06-12 08:28] LABS: Albumin Globulin Ratio 1.2 (0.9-2); Bilirubin,Total 2.5 mg/dl (0.2-1); Globulin 3.3 gm/dl (2.5-4.0); Total Protein 7.1 gm/dl (6.4-8.2)
[2019-06-12] MEDS: FAMOTIDINE 20 MG TAB PO SCH ×2 (09:09→21:11)
[2019-06-12] MEDS: ESCITALOPRAM OXALATE 10 MG TAB PO SCH ×2 (09:09→09:11)
[2019-06-12 10:55] LABS: Hepatitis B Surface Antigen Neg (Neg)
[2019-06-12 11:24] LABS: Hepatitis C IgG 13Yrs+Old_Rflx Neg (Neg)
--- NOTE | 2019-06-12 16:39 | Hospitalist Progress Note ---
Date of Service June 12, 2019 Assessment & Plan (1) Suicidal thoughts: * Continue to monitor on medical floor * 1:1 observation * 201 vs 302 as patient states he is agreeable to inpatient treatment, however states he must have access to computer for scholarship paperwork and today, he states he needs to go home prior to being admitted to inpatient psych --> discussed that this may result in 302 if patient attempts to leave AMA. 302 petition on front of chart * Lexapro 5mg will be discontinued as per patient and psych note * Psych consult-- appreciate recs --> will hold off initiating lamictal until medically stable and admitted to inpatient psych (2) Rhabdomyolysis: * Patient was admitted for rhabdomyolysis from 05/05-05/06/2018. Peak CK at that time was 11,461, that did normalize to 204 on 06/04/2018. * Most recent CK on 04/25/2019 was 222. * Of note, patient states today that he had only been to the gym one time in the past week and previous hospitalizations for rhabdo were not due to exercise --? why recurrent rhabdo -- secondary to dehydration??, although BUN/Cr do not indicate such, but patient reports decreased appetite and fluid intake. * CK 3355 on admission --> trending down, 2692 yesterday and 1394 today * Continue to rehydrate with IV fluids * Continue to monitor (3) Helicobacter pylori (H. pylori): * Reports that he was treated 2 weeks ago and finished treatment 2 days ago -- having recurring nausea symptoms at this time, requiring zofran * For now placed on famotidine 20 mg p.o. 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 pylori gastritis. * Continue Ativan 1 mg p.o., making 3 times daily as needed. (5) Increased bilirubin level: * Denies any past family or personal history of Gilbert's or similar disorders * T bili elevated yesterday to 1.2 from 0.9. Also with increased AST/ALT at 49/80 * RUQ ultrasound without evidence of acute cholecystitis or liver abnormalities * T bili further elevated to 2.5 today -- however, patient without increased abdominal pain, jaundice * Hepatitis panel pending * Possible GI consult in AM (6) ADHD: * Holding home vyvanse and adderall (7) Depression: * Hold lexapro 5mg as above * Consider lamictal as above (8) Microcytic anemia: * MCV 80.9 today, however patient with MCV 76-78 since April 2018 * Iron 145, Transferrin 274, Transferrin % sat 37, ferritin 18.9 -- iron def d/t borderline low ferritin (would expect >40) * FOCB positive -- upon further discussion, patient does admit to dark stools for the past several months and was previously supposed to see GI (he isn't sure who) but never followed up * -- patient may need further work-up as outpatient if remains stable. Hemoglobin electrophoresis for possible alpha thalassemia, etc (9) DVT prophylaxis: * Low risk * Encourage ambulation Dispo: rehydration with likely need for 302 for inpatient treatment once medically stable if patient not willing to be admitted voluntarily Supervising Physician Co-Signing Physician Notes Attending Attestation: Chart reviewed in detail, care plan d/w ELKIN Santillan. I agree w/ the hodgson components of her documentation. 19yo with h/o depression & ADD who was admitted for worsening depression & suicidal thoughts. Course complicated by mild rhabdomyolysis and abnormal LFTs. Cont IVF for rhabdo; work-up in progress for abnormal LFTs. Appreciate psych recommendations. Luis Anne MD Subjective Patient evaluated at bedside today. Only complaints really of nausea, but denies emesis. Minimal epigastric/RUQ pain without radiation. When asked about constipation/diarrhea and possible blood in stools, he states that didn't really think much about it but he has noticed dark stools for the past couple of months, but had attributed it to the spices he has been using to cook. He denies any vaishali red blood or blood tinged toilet paper. He states he was supposed to follow up with a GI doctor, but he never did. He states he came here voluntarily and he still indicates he wants inpatient treatment, but he voices that he "feels gross" and wants to go home to visit friends and get cleaned up and is willing to return for inpatient treatment. Discussion was had regarding patient not being medically stable at this point due to his rhabdo, and that even once medically stable, that is highly unlikely and if needed, patient may require 302 if he chooses to leave against medical advice with regards to psychiatric treatment. 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 Review of Systems Constitutional: + body aches, + fatigue, + anorexia and + insomnia Respiratory: no cough and no dyspnea Cardiovascular: no chest pain, no palpitations and no edema Gastrointestinal: + abdominal pain (eipgastric/RUQ) and + nausea; no vomiting, no constipation and no diarrhea/loose stools darkened stools Genitourinary: no dysuria and no hematuria Musculoskeletal: no back pain and no myalgia Integumentary: no rash and no lesions Psychiatric: + depression and + anxiety SI Physical Exam Constitutional: WD/WN, vitals as above ENMT: posterior erythema Neck: trachea midline, no thyromegaly Respiratory: normal respiratory effort, lungs clear to auscultation Cardiovascular: RRR, no murmur, no edema Gastrointestinal (Abdomen): Inspection/Auscultation: normal bowel sounds; abdomen not distended Percussion/Palpation: abdomen soft; no guarding, abdomen not rigid and no hepatosplenomegaly Skin: no rashes, warm and dry Psychiatric: Affect: + anxious affect Mood: + anxious mood Suicidal Thoughts: + reports suicidal thoughts Lymphatic: no cervical or axillary lymphadenopathy Results & Data Vital Signs (Past 12 Hours) Vital Signs Temp Pulse Resp BP Pulse Ox 06/12/19 15:22 36.9 C 72 18 118/64 95 06/12/19 09:12 36.6 C 66 18 133/78 97 Laboratory Results 06/12/19 06/12/19 06/12/19 Range/Units 09:43 09:43 07:13 WBC (4.8-10.8) K/uL RBC (4.7-6.1) M/uL Hgb (14.0-18.0) g/dL Hct (42-52) % MCV (80-100) fL MCH (25-34) pg MCHC (32-36) g/dL RDW Std Deviation (36.4-46.3) fL RDW Coeff of Noelle (11.5-14.5) % Plt Count (130-400) K/uL MPV (7.4-10.4) fL Immature Gran % (Auto) % Neut % (Auto) % Lymph % (Auto) % [place] % (Auto) % Eos % (Auto) % Baso % (Auto) % Immature Gran # (Auto) (0.00-0.02) K/uL Neut # (Auto) (1.4-6.5) K/uL Lymph # (Auto) (1.2-3.4) K/uL [place] # (Auto) (0.11-0.59) K/uL Eos # (Auto) (0-0.5) K/uL Baso # (Auto) (0-0.2) K/uL Sodium 137 (136-145) mmol/L Potassium 4.4 (3.5-5.1) mmol/L Chloride 106 (98-107) mmol/L Carbon Dioxide 27 (21-32) mmol/L Anion Gap 4.0 (3-11) BUN 9 (7-18) mg/dl Creatinine 0.91 (0.6-1.4) mg/dl Est Cr Clr Drug Dosing 138.9 ml/min Est GFR ( Amer) 139.1 Est GFR (Non-Af Amer) 120.0 BUN/Creatinine Ratio 10.0 (10-20) Glucose 94 (70-99) mg/dl Calcium 9.3 (8.5-10.1) mg/dl Total Bilirubin 2.5 H D (0.2-1) mg/dl AST 49 H (15-37) U/L ALT 80 H (12-78) U/L Alkaline Phosphatase 31 L (45-117) U/L Total Creatine Kinase 1394 H (39-308) U/L Total Protein 7.1 (6.4-8.2) gm/dl Albumin 3.8 (3.4-5.0) gm/dl Globulin 3.3 (2.5-4.0) gm/dl Albumin/Globulin Ratio 1.2 (0.9-2) Hepatitis A IgM Ab Pending Hep Bs Antigen Neg (Neg) Hep B Core IgM Ab Pending Hepatitis C Antibody Neg (Neg) 06/12/19 Range/Units 07:13 WBC 5.38 (4.8-10.8) K/uL RBC 5.72 (4.7-6.1) M/uL Hgb 15.3 (14.0-18.0) g/dL Hct 46.3 (42-52) % MCV 80.9 (80-100) fL MCH 26.7 (25-34) pg MCHC 33.0 (32-36) g/dL RDW Std Deviation 40.7 (36.4-46.3) fL RDW Coeff of Noelle 13.7 (11.5-14.5) % Plt Count 259 (130-400) K/uL MPV 9.4 (7.4-10.4) fL Immature Gran % (Auto) 0.0 % Neut % (Auto) 57.9 % Lymph % (Auto) 29.2 % [place] % (Auto) 10.6 % Eos % (Auto) 1.7 % Baso % (Auto) 0.6 % Immature Gran # (Auto) 0.00 (0.00-0.02) K/uL Neut # (Auto) 3.12 (1.4-6.5) K/uL Lymph # (Auto) 1.57 (1.2-3.4) K/uL [place] # (Auto) 0.57 (0.11-0.59) K/uL Eos # (Auto) 0.09 (0-0.5) K/uL Baso # (Auto) 0.03 (0-0.2) K/uL Sodium (136-145) mmol/L Potassium (3.5-5.1) mmol/L Chloride (98-107) mmol/L Carbon Dioxide (21-32) mmol/L Anion Gap (3-11) BUN (7-18) mg/dl Creatinine (0.6-1.4) mg/dl Est Cr Clr Drug Dosing ml/min Est GFR ( Amer) Est GFR (Non-Af Amer) BUN/Creatinine Ratio (10-20) Glucose (70-99) mg/dl Calcium (8.5-10.1) mg/dl Total Bilirubin (0.2-1) mg/dl AST (15-37) U/L ALT (12-78) U/L Alkaline Phosphatase (45-117) U/L Total Creatine Kinase (39-308) U/L Total Protein (6.4-8.2) gm/dl Albumin (3.4-5.0) gm/dl Globulin (2.5-4.0) gm/dl Albumin/Globulin Ratio (0.9-2) Hepatitis A IgM Ab Hep Bs Antigen (Neg) Hep B Core IgM Ab Hepatitis C Antibody (Neg) Diagnostic Findings ULTRASOUND RIGHT UPPER QUADRANT ABDOMEN IMPRESSION: No acute sonographic abnormality is identified in the right upper quadrant. No gallstones are seen. PG Care Time/CCT Total # of Minutes Spent Total Time Spent with Patient: Total time spent is greater than 50% in coordination of care (as documented) at patient's floor/unit and/or counseling patient: (1) Rhabdomyolysis Rhabdomyolysis type: non-traumatic Qualified Code(s): M62.82 - Rhabdomyolysis
[2019-06-12] MEDS: CETIRIZINE HCL 10 MG TABLET PO SCH (17:56)
[2019-06-12] MEDS: LORazepam 1 MG TAB PO PRN (23:24)
[2019-06-13] MEDS: NSS + 20MEQ KCL 20 MEQ/1,000 ML BAG IV SCH ×4 (01:53→21:39)
[2019-06-13 03:26] LABS: Hepatitis A Antibody IgM NON-REACTIVE (NON-REACTIVE)
[2019-06-13 03:46] LABS: Hepatitis B Core Antibody IgM NON-REACTIVE (NON-REACTIVE)
[2019-06-13 07:45] LABS: Basophils # (auto) 0.02 K/uL (0-0.2); Basophils % (auto) 0.4 %; Eosinophils # (auto) 0.11 K/uL (0-0.5); Eosinophils % (auto) 2.1 %; Hematocrit (blood only) 46.8 % (42-52); Hemoglobin 15.7 g/dL (14.0-18.0); Lymphocytes # (auto) 1.32 K/uL (1.2-3.4); Lymphocytes % (auto) 24.8 %; Mean Corpuscular Hemoglobin 26.9 pg (25-34); Mean Corpuscular Hgb Conc 33.5 g/dL (32-36); Mean Corpuscular Volume 80.3 fL (80-100); Mean Platelet Volume 9.5 fL (7.4-10.4); Monocytes # (auto) 0.61 K/uL (0.11-0.59); Monocytes % (auto) 11.5 %; Neutrophils # (auto) 3.26 K/uL (1.4-6.5); Neutrophils % (auto) 61.2 %; Platelet Count 263 K/uL (130-400); RDW Coefficient of Variation 13.6 % (11.5-14.5); RDW Standard Deviation 39.8 fL (36.4-46.3); Red Blood Count 5.83 M/uL (4.7-6.1); White Blood Count 5.32 K/uL (4.8-10.8)
[2019-06-13 08:12] LABS: Albumin Level 3.8 gm/dl (3.4-5.0); BUN Creatinine Ratio 10.9 (10-20); Calcium 9.3 mg/dl (8.5-10.1); Creatinine Clr Calc Pharmacy 133.1 ml/min; Est GFR (African American) 132.1; Potassium 4.2 mmol/L (3.5-5.1)
[2019-06-13 08:15] LABS: Albumin Globulin Ratio 1.1 (0.9-2); Bilirubin,Total 2.1 mg/dl (0.2-1); Globulin 3.4 gm/dl (2.5-4.0); Total Protein 7.2 gm/dl (6.4-8.2)
[2019-06-13] MEDS: CETIRIZINE HCL 10 MG TABLET PO SCH (08:19)
[2019-06-13] MEDS: FAMOTIDINE 20 MG TAB PO SCH ×2 (08:19→21:39)
--- NOTE | 2019-06-13 15:11 | Hospitalist Progress Note ---
Date of Service June 13, 2019 Assessment & Plan (1) Suicidal thoughts: * Continue to monitor on medical floor * 1:1 observation * 201 vs 302 as patient initially agreeable to voluntary treatment, but today wanted to give notice that "I came voluntarily and I can give you notice to leave voluntarily" -->He also states he must have access to computer for scholarship paperwork -- will allow for 2 hours of laptop with cord with 1:1 supervision at all times to allow him to work on this while on medical service * Psych consult-- appreciate recs --> discontinue lexapro and hold off initiating lamictal until medically stable and admitted to inpatient psych * CAN-HELP in this morning, with warrant on front of chart should patient attempt to leave AMA (2) Rhabdomyolysis: * Patient was admitted for rhabdomyolysis from 05/05-05/06/2018. Peak CK at that time was 11,461, that did normalize to 204 on 06/04/2018. Most recent CK on 04/25/2019 was 222. * IMPROVING * Of note, patient stated that he had only been to the gym one time in the past week and previous hospitalizations for rhabdo were not due to exercise -- possible that one strenuous exercise session on top of recent anorexia/dehydration and recent abx may have contributed. Denies cocaine, LSD, meth usage. ??viral cause * CK 3355 on admission --> trending down - currently 774 * Hep panel negative, monospot negative * Continue IVF for hydration * Repeat labs in AM (3) Helicobacter pylori (H. pylori): * Reports that he was treated 2 weeks ago and finished treatment 3 days ago -- having recurring nausea symptoms at this time, requiring zofran * Continue famotidine 20 mg p.o. 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 pylori gastritis. * Continue Ativan 1 mg p.o., making 3 times daily as needed. (5) Increased bilirubin level: * Denies any past family or personal history of Gilbert's, Thalassemia, etc * T bili elevated yesterday at 2.5 from 1.2 --> RUQ ultrasound without evidence of acute cholecystitis or liver abnormalities --> Direct bili 0.2, suggesting prehepatic cause * Tbili improved slightly to 2.1 today, direct bili 0.2 -- ?prehepatic cause --> Patient without abdominal pain, jaundice * AST/ALT improved to 29/66 today * Hepatitis panel negative * Will need GI follow up as outpatient as above (6) Depression: * D/c lexapro 5mg as above * Consider lamictal as above (7) Microcytic anemia: * MCV 80.3 today, however patient with MCV 76-78 since April 2018 * Iron 145, Transferrin 274, Transferrin % sat 37, ferritin 18.9 -- iron def d/t borderline low ferritin (would expect >40) * FOCB positive -- upon further discussion, patient does admit to dark stools for the past several months and was previously supposed to see GI (he isn't sure who) but never followed up * Will need outpatient follow up--> no s/sx of acute bleeding currently. (8) Elevated LFTs: * Patient originally with elevated AST/ALT but have since normalized to 29/66, respectively -- ??autoimmune hepatitis vs medication induced vs rhabdo * Hepatitis panel negative for acute infection * Monospot negative * Legionella urine pending (9) ADHD: * Holding home vyvanse and adderall -- unsure why patient being prescribed both medications, as vyvanse only at 30mg and able to be titrated up * Would advise against continuing both, unless prescribed by psychiatrist (10) DVT prophylaxis: * Low risk * Encourage ambulation Dispo: could potentially be medically stable tomorrow pending on labs/exam --> will need to be discharged to inpatient psychiatric facility Supervising Physician Co-Signing Physician Notes Attending Attestation: Chart reviewed in detail, care plan d/w ELKIN Santillan. I agree w/ the hodgson components of her documentation. 19yo with h/o depression & ADD who was admitted for worsening depression & suicidal thoughts. Course complicated by mild rhabdomyolysis and abnormal LFTs. Both issues are improving. Recent h/o h. pylori - confirmatory testing to confirm eradication pending. Psych continues to follow - will need inpatient psych following medical clearance. Luis Anne MD . Luis Anne MD Subjective Patient evaluated this morning. Denies further body aches, nausea, or abdominal pain/discomfort. He states he has not had any further suicidal thoughts. Patient's main concern is frustration with policies regarding his access to his laptop to complete scholarship paperwork. 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 Discussion regarding not being medically stable at this point in addition to presenting complaint and risk of self harm resulted in patient wanting to speak with psych team regarding next steps. Patient did seem frustrated, but was polite and respectful in wanting to be fully informed regarding how his admission to an inpatient psych facility would proceed and continues to express desire that it not be in the [place] area. 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 He was made aware that if were to attempt to leave against medical advice that a warrant and 302 would be likely. With regards to possible medication induced, discussion was had about amphetamine usage. Patient states he has been taking them for the past six months as prescribed by [facility] on campus and he did have previous discussions with his family doctor and they determined that could not be the cause as he had two other incidents of rhabdo prior to initiation of those medications. Review of Systems Constitutional: no fever and no chills Ear, Nose, Mouth, Throat: no sore throat and no dysphagia Respiratory: no cough and no dyspnea Cardiovascular: + palpitations; no chest pain and no edema Gastrointestinal: no abdominal pain, no nausea, no vomiting, no constipation and no diarrhea/loose stools Genitourinary: no dysuria and no hematuria Musculoskeletal: no myalgia and no body aches Integumentary: no acne and no lesions Psychiatric: + anxiety frustration Physical Exam Constitutional: WD/WN, vitals as above Neck: trachea midline, no thyromegaly Respiratory: normal respiratory effort, lungs clear to auscultation Cardiovascular: RRR, no murmur, no edema Gastrointestinal (Abdomen): Inspection/Auscultation: normal bowel sounds; abdomen not distended Percussion/Palpation: abdomen soft; no guarding, abdomen not rigid and no hepatosplenomegaly Skin: no rashes, warm and dry Psychiatric: Affect: + anxious affect Mood: + anxious mood Lymphatic: no cervical or axillary lymphadenopathy Results & Data Vital Signs (Past 12 Hours) Vital Signs Temp Pulse Resp BP Pulse Ox 06/13/19 07:12 36.6 C 77 18 141/67 H 98 06/13/19 06:00 36.4 C L 79 18 150/68 H 99 Laboratory Results 06/13/19 06/13/19 06/13/19 Range/Units 07:14 07:14 07:14 WBC 5.32 (4.8-10.8) K/uL RBC 5.83 (4.7-6.1) M/uL Hgb 15.7 (14.0-18.0) g/dL Hct 46.8 (42-52) % MCV 80.3 (80-100) fL MCH 26.9 (25-34) pg MCHC 33.5 (32-36) g/dL RDW Std Deviation 39.8 (36.4-46.3) fL RDW Coeff of Noelle 13.6 (11.5-14.5) % Plt Count 263 (130-400) K/uL MPV 9.5 (7.4-10.4) fL Immature Gran % (Auto) 0.0 % Neut % (Auto) 61.2 % Lymph % (Auto) 24.8 % [place] % (Auto) 11.5 % Eos % (Auto) 2.1 % Baso % (Auto) 0.4 % Immature Gran # (Auto) 0.00 (0.00-0.02) K/uL Neut # (Auto) 3.26 (1.4-6.5) K/uL Lymph # (Auto) 1.32 (1.2-3.4) K/uL [place] # (Auto) 0.61 H (0.11-0.59) K/uL Eos # (Auto) 0.11 (0-0.5) K/uL Baso # (Auto) 0.02 (0-0.2) K/uL Sodium 138 (136-145) mmol/L Potassium 4.2 (3.5-5.1) mmol/L Chloride 106 (98-107) mmol/L Carbon Dioxide 28 (21-32) mmol/L Anion Gap 5.0 (3-11) BUN 10 (7-18) mg/dl Creatinine 0.95 (0.6-1.4) mg/dl Est Cr Clr Drug Dosing 133.1 ml/min Est GFR ( Amer) 132.1 Est GFR (Non-Af Amer) 114.0 BUN/Creatinine Ratio 10.9 (10-20) Glucose 94 (70-99) mg/dl Calcium 9.3 (8.5-10.1) mg/dl Total Bilirubin 2.1 H (0.2-1) mg/dl Direct Bilirubin 0.2 (0-0.2) mg/dl AST 29 (15-37) U/L ALT 66 (12-78) U/L Alkaline Phosphatase 30 L (45-117) U/L Total Creatine Kinase 774 H (39-308) U/L Total Protein 7.2 (6.4-8.2) gm/dl Albumin 3.8 (3.4-5.0) gm/dl Globulin 3.4 (2.5-4.0) gm/dl Albumin/Globulin Ratio 1.1 (0.9-2) Stool H. pylori Ag U Marijuana THC Carboxy EBV Capsid Ag IgG Ab EBV Capsid Ag IgM Ab EBV EA Restrict+Diffuse EBV Nuclear Antigen Ab EBV Antibody Interp H. pylori Source Hepatitis A IgM Ab (NON-REACTIVE) Hep B Core IgM Ab (NON-REACTIVE) Monoscreen (Negative) Urine Legionella Ag 06/13/19 06/12/19 06/12/19 Range/Units 06:30 21:35 21:35 WBC (4.8-10.8) K/uL RBC (4.7-6.1) M/uL Hgb (14.0-18.0) g/dL Hct (42-52) % MCV (80-100) fL MCH (25-34) pg MCHC (32-36) g/dL RDW Std Deviation (36.4-46.3) fL RDW Coeff of Noelle (11.5-14.5) % Plt Count (130-400) K/uL MPV (7.4-10.4) fL Immature Gran % (Auto) % Neut % (Auto) % Lymph % (Auto) % [place] % (Auto) % Eos % (Auto) % Baso % (Auto) % Immature Gran # (Auto) (0.00-0.02) K/uL Neut # (Auto) (1.4-6.5) K/uL Lymph # (Auto) (1.2-3.4) K/uL [place] # (Auto) (0.11-0.59) K/uL Eos # (Auto) (0-0.5) K/uL Baso # (Auto) (0-0.2) K/uL Sodium (136-145) mmol/L Potassium (3.5-5.1) mmol/L Chloride (98-107) mmol/L Carbon Dioxide (21-32) mmol/L Anion Gap (3-11) BUN (7-18) mg/dl Creatinine (0.6-1.4) mg/dl Est Cr Clr Drug Dosing ml/min Est GFR ( Amer) Est GFR (Non-Af Amer) BUN/Creatinine Ratio (10-20) Glucose (70-99) mg/dl Calcium (8.5-10.1) mg/dl Total Bilirubin (0.2-1) mg/dl Direct Bilirubin (0-0.2) mg/dl AST (15-37) U/L ALT (12-78) U/L Alkaline Phosphatase (45-117) U/L Total Creatine Kinase (39-308) U/L Total Protein (6.4-8.2) gm/dl Albumin (3.4-5.0) gm/dl Globulin (2.5-4.0) gm/dl Albumin/Globulin Ratio (0.9-2) Stool H. pylori Ag Pending U Marijuana THC Carboxy EBV Capsid Ag IgG Ab Pending EBV Capsid Ag IgM Ab Pending EBV EA Restrict+Diffuse Pending EBV Nuclear Antigen Ab Pending EBV Antibody Interp Pending H. pylori Source Pending Hepatitis A IgM Ab (NON-REACTIVE) Hep B Core IgM Ab (NON-REACTIVE) Monoscreen (Negative) Urine Legionella Ag Pending 06/12/19 06/12/19 06/10/19 Range/Units 21:35 09:43 22:27 WBC (4.8-10.8) K/uL RBC (4.7-6.1) M/uL Hgb (14.0-18.0) g/dL Hct (42-52) % MCV (80-100) fL MCH (25-34) pg MCHC (32-36) g/dL RDW Std Deviation (36.4-46.3) fL RDW Coeff of Noelle (11.5-14.5) % Plt Count (130-400) K/uL MPV (7.4-10.4) fL Immature Gran % (Auto) % Neut % (Auto) % Lymph % (Auto) % [place] % (Auto) % Eos % (Auto) % Baso % (Auto) % Immature Gran # (Auto) (0.00-0.02) K/uL Neut # (Auto) (1.4-6.5) K/uL Lymph # (Auto) (1.2-3.4) K/uL [place] # (Auto) (0.11-0.59) K/uL Eos # (Auto) (0-0.5) K/uL Baso # (Auto) (0-0.2) K/uL Sodium (136-145) mmol/L Potassium (3.5-5.1) mmol/L Chloride (98-107) mmol/L Carbon Dioxide (21-32) mmol/L Anion Gap (3-11) BUN (7-18) mg/dl Creatinine (0.6-1.4) mg/dl Est Cr Clr Drug Dosing ml/min Est GFR ( Amer) Est GFR (Non-Af Amer) BUN/Creatinine Ratio (10-20) Glucose (70-99) mg/dl Calcium (8.5-10.1) mg/dl Total Bilirubin (0.2-1) mg/dl Direct Bilirubin (0-0.2) mg/dl AST (15-37) U/L ALT (12-78) U/L Alkaline Phosphatase (45-117) U/L Total Creatine Kinase (39-308) U/L Total Protein (6.4-8.2) gm/dl Albumin (3.4-5.0) gm/dl Globulin (2.5-4.0) gm/dl Albumin/Globulin Ratio (0.9-2) Stool H. pylori Ag U Marijuana THC Carboxy 482 EBV Capsid Ag IgG Ab EBV Capsid Ag IgM Ab EBV EA Restrict+Diffuse EBV Nuclear Antigen Ab EBV Antibody Interp H. pylori Source Hepatitis A IgM Ab NON-REACTIVE (NON-REACTIVE) Hep B Core IgM Ab NON-REACTIVE (NON-REACTIVE) Monoscreen Negative (Negative) Urine Legionella Ag PG Care Time/CCT Total # of Minutes Spent Total Time Spent with Patient: Total time spent is greater than 50% in coordination of care (as documented) at patient's floor/unit and/or counseling patient: (1) Rhabdomyolysis Rhabdomyolysis type: non-traumatic Qualified Code(s): M62.82 - Rhabdomyolysis
[2019-06-13] MEDS: LORazepam 1 MG TAB PO PRN (21:38)
[2019-06-14] MEDS: NSS + 20MEQ KCL 20 MEQ/1,000 ML BAG IV SCH ×4 (04:47→22:24)
[2019-06-14] MEDS: FAMOTIDINE 20 MG TAB PO SCH ×2 (08:22→21:21)
[2019-06-14] MEDS: CETIRIZINE HCL 10 MG TABLET PO SCH (08:22)
[2019-06-14 09:03] LABS: Albumin Level 3.7 gm/dl (3.4-5.0); BUN Creatinine Ratio 11.7 (10-20); Calcium 9.3 mg/dl (8.5-10.1); Creatinine Clr Calc Pharmacy 126.4 ml/min; Est GFR (African American) 124.1; Est GFR (Non-African American) 107.1; Potassium 4.1 mmol/L (3.5-5.1)
[2019-06-14 09:06] LABS: Albumin Globulin Ratio 1.1 (0.9-2); Bilirubin,Total 2.1 mg/dl (0.2-1); Globulin 3.5 gm/dl (2.5-4.0); Total Protein 7.2 gm/dl (6.4-8.2)
[2019-06-14 09:24] LABS: Epstein Barr Virus Early Ag Ab <9.00 U/mL
--- NOTE | 2019-06-14 12:55 | Hospitalist Progress Note ---
Date of Service June 14, 2019 Assessment & Plan (1) Suicidal thoughts: * Continue to monitor on medical floor * 1:1 observation * Was allowed 2 hours with laptop yesterday, scholarship paperwork completed --> patient much less anxious today. Will ask nursing to allow patient to shower with supervision as well as personal hygiene under same supervision. * Psych consult-- appreciate recs --> discontinue lexapro and hold off initiating lamictal until medically stable and admitted to inpatient psych * Patient to be discharged to if bed available tomorrow and patient medically stable (2) Rhabdomyolysis: * Patient was admitted for rhabdomyolysis from 05/05-05/06/2018. Peak CK at that time was 11,461, that did normalize to 204 on 06/04/2018. Most recent CK on 04/25/2019 was 222. * IMPROVING * Of note, patient stated that he had only been to the gym one time in the past week (for only 20 minutes) and previous hospitalizations for rhabdo were not due to exercise * CK 3355 on admission --> trending down - currently 474 * Hep panel negative, monospot negative. EBV panel with evidence of previous infection * Continue IVF for now * Repeat labs in AM -- hopefully stabilized and patient may be ready for inpatient psychiatric treatment (3) Helicobacter pylori (H. pylori): * Reports that he was treated 2 weeks ago and finished treatment 3 days ago -- no longer with nausea as complaint * Continue famotidine 20 mg p.o. 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 pylori gastritis. * Continue Ativan 1 mg p.o., making 3 times daily as needed. (5) Increased bilirubin level: * Denies any past family or personal history of Gilbert's, Thalassemia, e tc * T bili elevated 06/12 at 2.5 --> RUQ ultrasound without evidence of acute cholecystitis or liver abnormalities --> Direct bili 0.2, suggesting prehepatic cause * Tbili improved slightly to 2.1 but continues to be 2.1 today * AST/ALT improved to today * Hepatitis panel negative * Will need GI follow up as outpatient as above (6) Depression: * D/c lexapro 5mg as above * Consider lamictal as above (7) Microcytic anemia: * MCV 80.3, however patient with MCV 76-78 since April 2018 * Iron 145, Transferrin 274, Transferrin % sat 37, ferritin 18.9 -- iron def d/t borderline low ferritin (would expect >40) * FOCB positive on admission-- upon further discussion, patient does admit to dark stools for the past several months and was previously supposed to see GI (he isn't sure who) but never followed up --> NO FURTHER DARK STOOLS * Will need outpatient follow up--> no s/sx of acute bleeding currently. (8) Elevated LFTs: * Patient originally with elevated AST/ALT but have since normalized to respectively -- ??autoimmune hepatitis vs medication induced vs rhabdo * Hepatitis panel negative for acute infection * Monospot negative * Legionella urine pending (9) ADHD: * Holding home vyvanse and adderall -- initially unsure why patient being prescribed both medications, as vyvanse only at 30mg and able to be titrated up * Per patient, if he is going to go out he takes the adderral in the morning so it is out of his system in 6-8 hours, whereas if he is not he will take the vyvanse for longer duration of effect (10) DVT prophylaxis: * Low risk * Encourage ambulation Dispo: could potentially be medically stable tomorrow pending on labs/exam --> will need to be discharged to inpatient psychiatric facility- patient agreeable to [facility] if bed available Supervising Physician Co-Signing Physician Notes Attending Attestation: Chart reviewed in detail, care plan d/w ELKIN Santillan. I agree w/ the hodgson components of her documentation. 19yo with h/o depression & ADD who was admitted for worsening depression & suicidal thoughts. Course complicated by mild rhabdomyolysis and abnormal LFTs. Both issues are improving. With respect to abnormal LFTs the t bili continues to remain elevated - Gilbert's? Recent h/o h. pylori - confirmatory testing was negative suggesting eradication with recent Rx (had been dx with h.pylori based on breath testing). Psych continues to follow - will need inpatient psych following medical clearance. Suspect d/c 1-2 days. Luis Anne MD . Luis Anne MD Subjective Patient feeling "good" today. He states he did not get much sleep last night. Still with poor appetite. Further discussion was had regarding inpatient psych treatment due to concerns about not initially wanting to be inpatient in the [facility] but he states now that he is willing to be inpatient in this facility on [facility]. He was glad to be able to have completed his scholarship paperwork yesterday and was very pleased with all of his interactions with psych yesterday and feels much better about staying for treatment. His main concern today is that he would like to shower. He states he was also not given any toothbrush/toothpaste or mouth wash and would like these. He did also bring up about waking up at night and feeling like he was suffocating over the past several months, but admits he has had no reoccurance of those symptoms during this hospitalization and being on the zyrtec. Concerns about sleep apnea but discussed low likelihood given patient denies ever being told he snores, daytime somnolence, etc. Discussed that I would have discussion with charge nurse to see what we are able to accommodate. Patient demonstrates understanding and appreciative of help. Agreeable to have appointment set up for follow-up with GI as outpatient. He states he work-out this week was only for 20 minutes and he does watch for excessive exercise due to knowing he is prone to develop rhabdo. He also states that he has not noticed any darkened stools in the past two days. Review of Systems Constitutional: no fever and no chills Respiratory: no cough and no dyspnea Cardiovascular: no chest pain, no palpitations and no edema Gastrointestinal: no abdominal pain, no nausea and no vomiting Genitourinary: no dysuria and no hematuria Psychiatric: + depression and + anxiety Physical Exam Constitutional: WD/WN, vitals as above Neck: trachea midline, no thyromegaly Respiratory: normal respiratory effort, lungs clear to auscultation Cardiovascular: RRR, no murmur, no edema Gastrointestinal (Abdomen): Inspection/Auscultation: normal bowel sounds Percussion/Palpation: abdomen soft; no guarding, abdomen not rigid and no hepatosplenomegaly Skin: no rashes, warm and dry Psychiatric: Orientation: alert and oriented x 3 Lymphatic: no cervical or axillary lymphadenopathy Results & Data Vital Signs (Past 12 Hours) Vital Signs Temp Pulse Resp BP Pulse Ox 06/14/19 07:03 36.4 C L 71 18 114/75 98 PG Care Time/CCT Total # of Minutes Spent Total Time Spent with Patient: Total time spent is greater than 50% in coordination of care (as documented) at patient's floor/unit and/or counseling patient: (1) Rhabdomyolysis Rhabdomyolysis type: non-traumatic Qualified Code(s): M62.82 - Rhabdomyolysis
[2019-06-14] MEDS: LORazepam 1 MG TAB PO PRN (21:21)
[2019-06-14] MEDS: ONDANSETRON INJ 2 MG/ML 2 ML VIAL IV PRN (22:53)
[2019-06-15] MEDS: NSS + 20MEQ KCL 20 MEQ/1,000 ML BAG IV SCH ×2 (05:06→11:42)
[2019-06-15 08:22] LABS: Albumin Level 3.7 gm/dl (3.4-5.0); BUN Creatinine Ratio 10.6 (10-20); Calcium 9.2 mg/dl (8.5-10.1); Creatinine Clr Calc Pharmacy 130.3 ml/min; Est GFR (African American) 128.8; Est GFR (Non-African American) 111.1; Potassium 4.1 mmol/L (3.5-5.1)
[2019-06-15 08:25] LABS: Albumin Globulin Ratio 1.1 (0.9-2); Bilirubin,Total 2.2 mg/dl (0.2-1); Globulin 3.4 gm/dl (2.5-4.0); Total Protein 7.1 gm/dl (6.4-8.2)
[2019-06-15] MEDS: FAMOTIDINE 20 MG TAB PO SCH (08:50)
[2019-06-15] MEDS: CETIRIZINE HCL 10 MG TABLET PO SCH (08:50)
--- NOTE | 2019-06-15 11:50 | Psychiatric Progress Note ---
Date of Service June 15, 2019 Impression / Recommendations Impression Now 19-year-old male admitted medically on 06/11/19 for treatment of rhabdomyolysis - initially presenting to the ED for mental health evaluation. Pt reported worsening depression and suicidal ideation over the past several weeks. Pt has been engaged in psychiatric treatment as an outpatient, seeing a psychiatrist and a therapist. He reports noticeable improvement of mood with trial of lamotrigine 50mg. Pt did not tolerate trial of sertraline and does not desire to continue escitalopram due to sexual side effects. Although he took his dose this morning, patient is requesting to discontinue the medication - which seems reasonable as he is verbalizing desire to review psychotropic medications during inpatient psychiatric treatment. Pt is reporting depressive symptoms and is agreeable with inpatient psychiatric treatment at this time. 302 warrant was completed during his medical admission, as patient was requesting to leave AMA prior to medical clearance. Accommodations were made to allow patient to complete a scholarship application during his medical admission, in attempts to reduce anxiety and allow him to better focus on his psychiatric treatment once referred. Inpatient psychiatric treatment is being recommended, patient stating he is not presently suicidal, but also recognizing that his precipitating factors have not been mitigated during his medical admission. Will begin referrals to inpatient psychiatric facilities, beginning with his preferred choices. Pt did state he is willing to be transferred to any facility for inpatient treatment. Dr. Maxime Ca was directly involved in review and discussion of the patient's case and participated in medical decision making regarding treatment recommendations. Recommendations: 06/11 - Pt is not willing to continue escitalopram - therefore seems appropriate to discontinue. Will defer further medication considerations to accepting inpatient psychiatric facility. He reports positive response to 50mg of lamotrigine in the past, but would suggest holding retrial of this medication until he is medically cleared and transferred to a psychiatric facility for further review - Inpatient psychiatric treatment is being recommended; 302 petitioning statement on chart - will determine commitment status at time of medical clearance - Continue 1:1 for suicide precautions while on medical floor 06/15 - Discussed patient's willingness for inpatient psychiatric treatment. After explaining that we would not be able to accommodate his desire for transfer out of state/country and that our facility does not have bed availability, he verbalized willingness for voluntary referrals to local alternative facilities. Pt had previously been provided with a list of facilities and did express preference which we will attempt to accommodate. - Frustrations with mental health processes were heard from the patient, and attempts were made to educate and offer reassurance that we are interested in working with him to achieve the appropriate treatment outcome - Will have patient sign a 201 and begin referral process to inpatient facilities for him to receive desired psychiatric interventions Risk Factors Assessment Male: Yes Do You Have Access To A Gun?: No Health Problems: Yes (repeated rhabdomyolysis ) Mental Health Diagnoses: Yes Substance Use Disorders: Yes Previous Attempt: Yes (OD on prescription medications 5 years ago) Previous Psychiatric Hospitalization: No Hopelessness: Yes Protective Factors Assessment : No Responsible for Young Children: No Employed: No Interval History Identifying Information Now 19-year-old male from the [place] admitted medically on 06/11/19 after presenting to the ED for mental health evaluation. Pt was admitted medically for treatment of recurrent rhabdomyolysis. Psychiatric consultation was requested to evaluate patient for SI and worsening depression. Chief Complaint "I just want to get this sorted out. I came here wanting treatment." Review of Systems Notes Constitutional: denied Cardiovascular: denied Respiratory: denied Gastrointestinal: denied Neurological: denied Psychiatric: denies symptoms other than stated above Total of at least 10 systems reviewed, pertinent positives as above and in HPI. Subjective Subjective Patient's case was reviewed and discussed during morning report with supervising psychiatrist and psychiatric nurse liaison. Patient is presently on an active 302 warrant, after verbalizing desire to leave AMA prior to medical clearance. At that time, patient was perceived to still be of acute risk of harm to self, and 302 warrant was supported by mental health delegate. Patient remained in the hospital for continued medical treatment, with continued recommendation for inpatient psychiatric treatment. Updates were provided to this PA-C after our team was informed of anticipated medical clearance today. Psychiatric nurse liaison spoke with patient regarding willingness for referrals to alternative inpatient psychiatric facilities, as our unit has no bed availability anticipated today. Initially, patient was reportedly frustrated, as his desire was for treatment locally at this facility. He did provide our team with a list of preferred facilities, based on input from friends and family. Patient had requested to speak with a psychiatric provider, and this PA-C and psychiatric sridevi yoder liaison visited the patient in his room. Patient initially expressed frustrations with perceived inconsistencies in his treatment. Ultimately, patient continues to express that he came to the emergency room voluntarily, requesting for himself to have inpatient psychiatric treatment. This provider acknowledged that this was the patient's voluntary request, but reminded him that inpatient psychiatric treatment remains the recommendation. Patient does not express arguments to this recommendation; however, does report a preference for specific facilities. This provider attempted to review all possible outcomes with the patient, specifically his willingness for treatment if these 3 specified facilities would be unable to admit him. Patient states that his preference would be "to go to the facility in [place] or be sent back home to get inpatient treatment there." This provider informed the patient that based on her recommendations, we would not be able to accommodate a transfer to another state, and certainly not another country. After review of available options, patient states that he remains willing for psychiatric treatment, and is accepting of referrals to any local facility. To on her conversation, patient states "I just wanted to be clearly known that I am voluntary for any psychiatric treatment facilities listed on that sheet." Commitment status was reviewed with supervising psychiatrist, to discuss recommendations regarding his 302 warrant. After review of patient's case and his verbalized willingness for inpatient psychiatric treatment, recommendation was to disposition 302 warrant and refer patient voluntarily to inpatient psychiatric treatment facilities in the area, beginning with his reported preferences. Physical Exam Psychiatric Orientation: alert, oriented x 3 and cooperative (superficially, admitting he is frustrated, but tolerates conversation) Apperance: appropriately dressed (in paper scrubs per suicide protocol), appropriately groomed (wearing trendy corrective lenses, hair neatly styled) and appeared stated age Eye Contact: good eye contact Motor Behavior: no abnormal motor movements (observed while sitting upright in bed) Speech: normal rate/rhythm/volume of speech (irritable tone while expressing frustrations, but not yelling) Affect: + irritable affect and mood congruent with affect Mood: + irritable mood ("I'm frustrated with this") Thought Process: goal directed thought process, clear/coherent thought process and thought association intact Thought Content: reality based without delusions; no hopelessness Suicidal Thoughts: denies suicidal thoughts (presently) and denies suicidal intent (presently) Admitted with SI, plan to either shoot or stab himself Homicidal Thoughts: denies homicidal thoughts Hallucinations: no auditory hallucinations and no visual hallucinations Cognition: attention grossly intact and language grossly intact Insight: + fair insight Judgement: + fair judgement Vital Signs (Past 24 Hours) Last Vital Signs Temp 36.3 C L 06/15/19 07:07 Pulse 69 06/15/19 07:07 Resp 20 06/15/19 07:07 BP 121/75 06/15/19 07:07 Pulse Ox 100 06/15/19 07:07 Results & Data Laboratory Results Laboratory Results - last 24 hr 06/12/19 06/13/19 06/15/19 21:35 06:30 07:38 Sodium 137 Potassium 4.1 Chloride 107 Carbon Dioxide 25 Anion Gap 5.0 BUN 10 Creatinine 0.97 Est Cr Clr Drug Dosing 130.3 Est GFR ( Amer) 128.8 Est GFR (Non-Af Amer) 111.1 BUN/Creatinine Ratio 10.6 Glucose 91 Calcium 9.2 Total Bilirubin 2.2 H AST 16 ALT 47 Alkaline Phosphatase 32 L Lactate Dehydrogenase Total Creatine Kinase 352 H Total Protein 7.1 Albumin 3.7 Globulin 3.4 Albumin/Globulin Ratio 1.1 H. pylori Source STOOL Urine Legionella Ag SEE NOTE 06/15/19 07:38 Sodium Potassium Chloride Carbon Dioxide Anion Gap BUN Creatinine Est Cr Clr Drug Dosing Est GFR ( Amer) Est GFR (Non-Af Amer) BUN/Creatinine Ratio Glucose Calcium Total Bilirubin AST ALT Alkaline Phosphatase Lactate Dehydrogenase 130 Total Creatine Kinase Total Protein Albumin Globulin Albumin/Globulin Ratio H. pylori Source Urine Legionella Ag Current Inpatient Medications Current Inpatient Medications: Current Inpatient Medications Al Hydrox/Mg Hydrox/Simethicone (Maalox) 30 ml PO Q6H PRN PRN Reason: Dyspepsia Stop: 07/11/19 03:08 Cetirizine HCl (Zyrtec) 10 mg PO QAM [facility] Stop: 07/12/19 16:44 Last Admin: 06/15/19 08:50 Dose: 10 mg Documented by: Escitalopram Oxalate (Lexapro Tab) 5 mg PO DAILY [facility] Stop: 07/11/19 08:59 Last Admin: 06/12/19 09:11 Dose: Not Given Documented by: Famotidine (Pepcid) 20 mg PO BID [facility] Stop: 07/11/19 08:59 Last Admin: 06/15/19 08:50 Dose: 20 mg Documented by: Potassium Chloride/Sodium Chloride (Normal Saline W/20 Meq Kcl) 20 meq in 1,000 mls @ 150 mls/hr IV .[id number] [facility] Stop: 07/11/19 03:29 Last Admin: 06/15/19 11:42 Dose: 150 mls/hr Documented by: Lorazepam (Ativan) 1 mg PO Q8H PRN PRN Reason: Anxiety Stop: 07/11/19 01:35 Last Admin: 06/14/19 21:21 Dose: 1 mg Documented by: Magnesium Hydroxide (Milk Of Magnesia) 30 ml PO Q6H PRN PRN Reason: Constipation Stop: 07/11/19 03:08 Ondansetron HCl (Zofran) 4 mg IV Q6H PRN PRN Reason: Nausea Stop: 07/11/19 03:08 Last Admin: 06/14/19 22:53 Dose: 4 mg Documented by: Mental Health & Subst Abuse Tx Therapist Name of Therapist: Ruperto @ [facility] Psych Clinic Service Desk Director Name of Service Desk Director: None Post Discharge Appointments Primary Care Physician Name Of Family Doctor: JERMAIN
--- NOTE | 2019-06-15 13:51 | Communication Note ---
Date of Service: June 15, 2019 Patient medically stable for discharge to inpatient psychiatric facility
--- NOTE | 2019-06-15 13:52 | Discharge Summary ---
Date of Service June 15, 2019 Admission HPI Per Admitting Provider Chief Complaint: The patient presents to the emergency department with worsening anxiety with depression, nausea, insomnia and suicidal ideation. Primary Care Provider: [facility] The patient is a 18-year-old male with a past medical history including anxiety, depression, ADD and rhabdomyolysis, who presents to the emergency department with worsening symptoms over the past 2 weeks. He had initially presented for a mental health evaluation, laboratories revealed recurrent rhabdomyolysis, patient was referred for medical evaluation. Admission Exam Per Admitting Provider Physical Exam: The patient is awake, alert and oriented 3, well developed and well nourished, normocephalic and atraumatic, lying in bed and in no acute distress. HEENT--PERRL, EOMI, mucous membranes and oropharynx dry. Neck--supple. No JVD. No bruits. Thyroid normal, trachea midline, no adenopathy. Heart--normal S1 and S2. No murmurs, rubs or gallops. Lungs--clear bilaterally, no respiratory distress, no accessory muscle use. Abdomen--normal bowel sounds and soft. Nontender. Nondistended, no hernias or masses, no organomegaly. Extremities--no cyanosis or clubbing. No edema. There are good distal pulses b/l. Dermatologic--normal skin turgor, normal color, no abnormal lymph nodes, no rash. Neurologic--cranial nerves II through XII grossly intact. Rheumatologic--normal range of motion. Psychiatric--normal affect. Principal Diagnosis Rhabdomyolysis, Suicidal Ideation Discharge Exam Constitutional WD/WN, vitals as above Neck trachea midline, no thyromegaly Respiratory normal respiratory effort, lungs clear to auscultation Cardiovascular RRR, no murmur, no edema Gastrointestinal (Abdomen) Inspection/Auscultation: normal bowel sounds Percussion/Palpation: abdomen soft; no guarding, abdomen not rigid and no hepatosplenomegaly Skin no rashes, warm and dry Psychiatric Orientation: alert and oriented x 3 Lymphatic no cervical or axillary lymphadenopathy Discharge Data Allergies Allergy/AdvReac Type Severity Reaction Status Date / Time lavender (Lavandula Allergy Mild Rash Unverified 04/25/19 11:51 angustifolia) Consultations 06/11/19 00:43 ED Decision to Admit Stat 06/11/19 03:09 Consult Case Management - Discharge Planning Routine 06/11/19 03:31 Consult Psychiatry Routine Ordered Studies 06/11/19 13:17 US liver Routine Hospital Course (1) Suicidal thoughts: * Continue to monitor on medical floor * 1:1 observation * Was allowed 2 hours with laptop yesterday, scholarship paperwork completed --> patient much less anxious today. Will ask nursing to allow patient to shower with supervision as well as personal hygiene under same supervision. * Psych consult-- appreciate recs --> discontinue lexapro and hold off initiating lamictal until medically stable and admitted to inpatient psych * Patient to be discharged to if bed available tomorrow and patient medically stable (2) Rhabdomyolysis: * Patient was admitted for rhabdomyolysis from 05/05-05/06/2018. Peak CK at that time was 11,461, that did normalize to 204 on 06/04/2018. Most recent CK on 04/25/2019 was 222. * IMPROVING * Of note, patient stated that he had only been to the gym one time in the past week (for only 20 minutes) and previous hospitalizations for rhabdo were not due to exercise * CK 3355 on admission --> trending down - currently 352 * Hep panel negative, monospot negative. EBV panel with evidence of previous infection * Continue IVF for now * Repeat labs in AM -- hopefully stabilized and patient may be ready for inpatient psychiatric treatment (3) Helicobacter pylori (H. pylori): * Reports that he was treated 2 weeks ago and finished treatment 3 days ago -- no longer with nausea as complaint * Continue famotidine 20 mg p.o. 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 pylori gastritis. * Continue Ativan 1 mg p.o., making 3 times daily as needed. (5) Increased bilirubin level: * Denies any past family or personal history of Gilbert's, Thalassemia, etc * T bili elevated 12/3 at 2.5 --> RUQ ultrasound without evidence of acute cholecystitis or liver abnormalities --> Direct bili 0.2, suggesting prehepatic cause * Tbili improved slightly to 2.1 but continues to be 2.1 today * AST/ALT improved to 21/56 today * Hepatitis panel negative * Will need GI follow up as outpatient as above (6) Depression: * D/c lexapro 5mg as above * Consider lamictal as above (7) Microcytic anemia: * MCV 80.3, however patient with MCV 76-78 since April 2018 * Iron 145, Transferrin 274, Transferrin % sat 37, ferritin 18.9 -- iron def d/t borderline low ferritin (would expect >40) * FOCB positive on admission-- upon further discussion, patient does admit to dark stools for the past several months and was previously supposed to see GI (he isn't sure who) but never followed up --> NO FURTHER DARK STOOLS * Will need outpatient follow up--> no s/sx of acute bleeding currently. (8) Elevated LFTs: * Patient originally with elevated AST/ALT but have since normalized to 21/56 respectively -- ??autoimmune hepatitis vs medication induced vs rhabdo * Hepatitis panel negative for acute infection * Monospot negative * Legionella urine pending (9) ADHD: * Holding home vyvanse and adderall -- initially unsure why patient being prescribed both medications, as vyvanse only at 30mg and able to be titrated up * Per patient, if he is going to go out he takes the adderral in the morning so it is out of his system in 6-8 hours, whereas if he is not he will take the vyvanse for longer duration of effect (10) DVT prophylaxis: * Low risk * Encourage ambulation Dispo: could potentially be medically stable tomorrow pending on labs/exam --> will need to be discharged to inpatient psychiatric facility- patient agreeable to 3S if bed available Discharge Plan Discharge Items Patient Disposition: Transfer Behavioral Health Fac Reason For Visit: SUICIDAL IDEATION, RHABDOMYOLYSIS Discharge Diagnosis: Rhabdomyolysis Goals: You have been hospitalized for an acute medical problem. During your stay at [facility], we have made an effort to correct the problem that brought you to the hospital while keeping you as comfortable as possible. Medications were used to bring your condition under control and your discharge instructions will include directions for any medications you should take after leaving the hospital. Please make sure you see your Primary Care Provider as part of your follow up plan. Activity: Resume your previous activity Non-emergency contact: Primary Care Provider Call non-emergency contact if: you have any medication questions, your symptoms worsen and you have a fever Follow-up/Referrals: Corby Martin MD [Physician] - 06/28/19 1:45 pm (Please, follow up at [facility] with Dr. Martin on June 28 at 2:00 pm (arrive 1:45 pm). *The office is located at [address] [place] [address] in [facility]). If you need to change this appointment, call the office at [phone].) [facility] [Primary Care Provider] - Diet: Regular Stand-Alone Forms: My [facility], Suicide Prevention Resources Medications and DC Order Prescriptions: No Action dextroamphetamine-amphetamine [Adderall XR] 20 mg capsule,extended release 24hr 20 mg PO DAILY RF: 0 lorazepam 1 mg tablet 1 mg PO DAILY PRN (Reason: Anxiety) RF: 0 escitalopram oxalate [Lexapro] 5 mg tablet 5 mg PO DAILY RF: 0 Vyvanse 30 mg capsule 30 mg PO DAILY RF: 0 Admission Data Admit Date/Time: 06/11/19 01:13 Attending Provider: Luis Anne Admit Provider: Parker Spencer Primary Care Provider: [facility] Other Providers: Parker Spencer ; Josh Lund
--- NOTE | 2019-06-15 16:09 | Hospitalist Progress Note ---
Date of Service June 15, 2019 Assessment & Plan (1) Suicidal thoughts: * 1:1 observation * Asked nursing to allow patient to shower with supervision as well as personal hygiene under same supervision -- per patient, much improvement in general wellbeing * Psych consult-- appreciate recs --> discontinue lexapro and hold off initiating lamictal until medically stable and admitted to inpatient psych * Patient to be discharged to if bed available tomorrow or other facility when bed available (2) Rhabdomyolysis: * Patient was admitted for rhabdomyolysis from 05/05-05/06/2018. Peak CK at that time was 11,461, that did normalize to 204 on 06/04/2018. Most recent CK on 04/25/2019 was 222. * Resolved * CK 3355 on admission --> trending down - currently 352. Can discontinue IVF as patient with adequate PO intake * Hep panel negative, monospot negative. EBV panel with evidence of previous infection -- ??chronic viral myositis? (3) Helicobacter pylori (H. pylori): * Reports that he was treated 2 weeks ago and finished treatment 3 days ago -- no longer with nausea as complaint * Continue famotidine 20 mg p.o. 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 Martin (4) Nausea: * Resolved -- Likely combination of anxiety and H. pylori gastritis. * Continue Ativan 1 mg p.o., making 3 times daily as needed. (5) Increased bilirubin level: * Denies any past family or personal history of Gilbert's, Thalassemia, etc * T bili elevated 06/12 at 2.5 --> RUQ ultrasound without evidence of acute cholecystitis or liver abnormalities --> Direct bili 0.2, suggesting prehepatic cause. LDH wnl, suggestive no hemolysis * Tbili continues to be elevated at 2.2, but patient asymptomatic and without jaundice at this time * AST/ALT normalized * Hepatitis panel negative. Monospot negative. EBV with history of mono but no active infection * Will need GI follow up as outpatient as above (6) Depression: * D/c lexapro 5mg as above * Consider lamictal as above (7) Microcytic anemia: * MCV wnl today, however patient with MCV 76-78 since April 2018 * Iron 145, Transferrin 274, Transferrin % sat 37, ferritin 18.9 -- iron def d/t borderline low ferritin (would expect >40) * FOCB positive on admission-- upon further discussion, patient does admit to dark stools for the past several months and was previously supposed to see GI (he isn't sure who) but never followed up --> NO FURTHER DARK STOOLS * Will need outpatient follow up--> no s/sx of acute bleeding currently. (8) Elevated LFTs: * Patient originally with elevated AST/ALT but have since normalized -- ??autoimmune hepatitis vs medication induced vs rhabdo * Hepatitis panel negative for acute infection * Monospot negative * Legionella urine negative (9) ADHD: * Holding home vyvanse and adderall -- initially unsure why patient being prescribed both medications, as vyvanse only at 30mg and able to be titrated up * Per patient, if he is going to go out he takes the adderral in the morning so it is out of his system in 6-8 hours, whereas if he is not he will take the vyvanse for longer duration of effect * Will defer restarting to psych team (10) DVT prophylaxis: * Low risk * Encourage ambulation Dispo: medically stable. discharge to inpatient psych facility when bed available Supervising Physician Co-Signing Physician Notes Attending Attestation: Chart reviewed in detail, care plan d/w ELKIN Santillan. I agree w/ the hodgson components of her documentation. Please see my attestation on d/c summary from same date. Luis Anne MD Subjective Patient feeling "great" today. He states that showering and being able to brush teeth has made him feel "10x better". No abdominal pain, palpitations or other concerns at this time. Very pleased with all hospital staff and kindness shown to him over the past two days. States he did have conversation with psych liason and discussed various locations if bed not available on 3S. Patient agreeable and medically stable. Review of Systems Constitutional: no fever and no chills Respiratory: no cough and no dyspnea Cardiovascular: no chest pain, no palpitations and no edema Gastrointestinal: no abdominal pain, no nausea, no vomiting, no constipation and no diarrhea/loose stools Genitourinary: no dysuria and no hematuria Integumentary: no rash and no lesions Neurologic: no syncope and no headache(s) Psychiatric: + depression (improving but states he still wants help) Physical Exam Constitutional: WD/WN, vitals as above Neck: trachea midline, no thyromegaly Respiratory: normal respiratory effort, lungs clear to auscultation Cardiovascular: RRR, no murmur, no edema Gastrointestinal (Abdomen): Inspection/Auscultation: normal bowel sounds; abdomen not distended Percussion/Palpation: abdomen soft; no guarding and no hepatosplenomegaly Skin: no rashes, warm and dry Psychiatric: Orientation: alert and oriented x 3 Lymphatic: no cervical or axillary lymphadenopathy Results & Data Vital Signs (Past 12 Hours) Vital Signs Temp Pulse Pulse Resp BP Pulse Ox 06/15/19 15:58 36.5 C 69 82 18 103/68 99 06/15/19 15:00 36.5 C 82 18 103/68 99 06/15/19 07:07 36.3 C L 69 20 121/75 100 Laboratory Results 06/15/19 06/15/19 06/13/19 Range/Units 07:38 07:38 06:30 Sodium 137 (136-145) mmol/L Potassium 4.1 (3.5-5.1) mmol/L Chloride 107 (98-107) mmol/L Carbon Dioxide 25 (21-32) mmol/L Anion Gap 5.0 (3-11) BUN 10 (7-18) mg/dl Creatinine 0.97 (0.6-1.4) mg/dl Est Cr Clr Drug Dosing 130.3 ml/min Est GFR ( Amer) 128.8 Est GFR (Non-Af Amer) 111.1 BUN/Creatinine Ratio 10.6 (10-20) Glucose 91 (70-99) mg/dl Calcium 9.2 (8.5-10.1) mg/dl Total Bilirubin 2.2 H (0.2-1) mg/dl AST 16 (15-37) U/L ALT 47 (12-78) U/L Alkaline Phosphatase 32 L (45-117) U/L Lactate Dehydrogenase 130 (87-241) U/L Total Creatine Kinase 352 H (39-308) U/L Total Protein 7.1 (6.4-8.2) gm/dl Albumin 3.7 (3.4-5.0) gm/dl Globulin 3.4 (2.5-4.0) gm/dl Albumin/Globulin Ratio 1.1 (0.9-2) Urine Legionella Ag SEE NOTE PG Care Time/CCT Total # of Minutes Spent Total Time Spent with Patient: Total time spent is greater than 50% in coordination of care (as documented) at patient's floor/unit and/or counseling patient: (1) Rhabdomyolysis Rhabdomyolysis type: non-traumatic Qualified Code(s): M62.82 - Rhabdomyolysis
--- NOTE | 2019-06-15 17:18 | Discharge Summary ---
Date of Service June 15, 2019 Admission HPI Per Admitting Provider Chief Complaint: The patient presents to the emergency department with worsening anxiety with depression, nausea, insomnia and suicidal ideation. Primary Care Provider: [facility], [place] The patient is a 18-year-old male with a past medical history including anxiety, depression, ADD and rhabdomyolysis, who presents to the emergency department with worsening symptoms over the past 2 weeks. He had initially presented for a mental health evaluation, laboratories revealed recurrent rhabdomyolysis, patient was referred for medical evaluation. Admission Exam Per Admitting Provider The patient is awake, alert and oriented 3, well developed and well nourished, normocephalic and atraumatic, lying in bed and in no acute distress. HEENT--PERRL, EOMI, mucous membranes and oropharynx dry. Neck--supple. No JVD. No bruits. Thyroid normal, trachea midline, no adenopathy. Heart--normal S1 and S2. No murmurs, rubs or gallops. Lungs--clear bilaterally, no respiratory distress, no accessory muscle use. Abdomen--normal bowel sounds and soft. Nontender. Nondistended, no hernias or masses, no organomegaly. Extremities--no cyanosis or clubbing. No edema. There are good distal pulses b/l. Dermatologic--normal skin turgor, normal color, no abnormal lymph nodes, no rash. Neurologic--cranial nerves II through XII grossly intact. Rheumatologic--normal range of motion. Psychiatric--normal affect. Principal Diagnosis Rhabdomyolysis, Suicidal Ideation Discharge Exam Constitutional WD/WN, vitals as above Neck trachea midline, no thyromegaly Respiratory normal respiratory effort, lungs clear to auscultation Cardiovascular RRR, no murmur, no edema Gastrointestinal (Abdomen) Inspection/Auscultation: normal bowel sounds; abdomen not distended Percussion/Palpation: abdomen soft; no guarding Skin no rashes, warm and dry Psychiatric Orientation: alert and oriented x 3 Suicidal Thoughts: denies suicidal thoughts (presently) and denies suicidal intent (presently) Insight: + fair insight Judgement: + fair judgement Lymphatic no cervical or axillary lymphadenopathy Discharge Data Allergies Allergy/AdvReac Type Severity Reaction Status Date / Time lavender (Lavandula Allergy Mild Rash Unverified 04/25/19 11:51 angustifolia) Consultations 06/11/19 00:43 ED Decision to Admit Stat 06/11/19 03:09 Consult Case Management - Discharge Planning Routine 06/11/19 03:31 Consult Psychiatry Routine Ordered Studies 06/11/19 13:17 US liver Routine Hospital Course (1) Rhabdomyolysis: * Patient was admitted for rhabdomyolysis from 05/05-05/06/2018. Peak CK at that time was 11,461, that did normalize to 204 on 06/04/2018. Most recent CK on 04/25/2019 was 222. * Resolved * CK 3355 on admission--> trended down to 352 with IVF * Hep panel negative, monospot negative. EBV panel with evidence of previous infection. (2) Helicobacter pylori (H. pylori): * Reported that he was treated 2 weeks ago and finished treatment 3 days ago -- no longer with nausea as complaint * Continued famotidine 20 mg p.o. twice daily while inpatient. Reference test sent for eradication which no antigen was detected. 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 Martin (3) Increased bilirubin level: * Denied any past family or personal history of Gilbert's, Thalassemia, etc * T bili elevated 06/12 at 2.5 --> RUQ ultrasound without evidence of acute cholecystitis or liver abnormalities --> Direct bili 0.2, suggesting prehepatic cause. LDH wnl, suggestive no hemolysis * Tbili continues to be elevated at 2.2, but patient asymptomatic and without jaundice at this time. AST/ALT normalized. Hepatitis panel negative. Monospot negative. EBV with history of mono but no active infection. * Will need GI follow up as outpatient as above (4) Suicidal thoughts: * 1:1 observation * Psych consult-- appreciate recs --> discontinue lexapro and hold off initiating lamictal until medically stable and admitted to inpatient psych (5) Nausea: * Resolved -- Likely combination of anxiety and H. pylori gastritis. * Continued Ativan 1 mg p.o., making 3 times daily as needed. (6) Depression: * D/c lexapro 5mg as above * Consider lamictal as above once in inpatient psych facility (7) Microcytic anemia: * MCV wnl, however patient with MCV 76-78 since April 2018 * Iron 145, Transferrin 274, Transferrin % sat 37, ferritin 18.9 -- iron def d/t borderline low ferritin (would expect >40) * FOCB positive on admission-- upon further discussion, patient does admit to dark stools for the past several months and was previously supposed to see GI (he isn't sure who) but never followed up --> NO FURTHER DARK STOOLS for past 3 days. No active s/sx of bleeding prior to discharged * Follow up with GI as outpatient as above (8) Elevated LFTs: * Patient originally with elevated AST/ALT normalized * Hepatitis panel negative for acute infection * Monospot negative * Legionella urine negative (9) ADHD: * Holding home vyvanse and adderall -- initially unsure why patient being prescribed both medications, as vyvanse only at 30mg and able to be titrated up * Per patient, if he is going to go out he takes the adderral in the morning so it is out of his system in 6-8 hours, whereas if he is not he will take the vyvanse for longer duration of effect * Will defer restarting to psych team (10) DVT prophylaxis: * Low risk * Encouraged ambulation while inpatient Total Time Total Time Spent Total Time Spent (In Minutes): 45 Discharge Plan Discharge Items Patient Disposition: Transfer Behavioral Health Fac Reason For Visit: SUICIDAL IDEATION, RHABDOMYOLYSIS Discharge Diagnosis: Rhabdomyolysis Goals: You have been hospitalized for an acute medical problem. During your stay at [facility], we have made an effort to correct the problem that brought you to the hospital while keeping you as comfortable as possible. Medications were used to bring your condition under control and your discharge instructions will include directions for any medications you should take after leaving the hospital. Please make sure you see your Primary Care Provider as part of your follow up plan. Activity: Resume your previous activity Non-emergency contact: Primary Care Provider Call non-emergency contact if: you have any medication questions, your symptoms worsen and you have a fever Follow-up/Referrals: Corby aMrtin MD [Physician] - 06/28/19 1:45 pm (Please, follow up at [facility] G[facility]ology Office with Dr. Martin on June 28 at 2:00 pm (arrive 1:45 pm). *The office is located at [address] [place] [address] in [facility]). If you need to change this appointment, call the office at [phone].) [facility] [Primary Care Provider] - Diet: Regular Addtl Attending Provider Instructions: Please follow up with gastroenterology as an outpatient for further investigations of elevated bilirubin as discussed during your hospital admission. An appointment has been made with Dr. Martin, who you were originally to see. You have been given a prescription for zyrtec. You have been taking this medication while inpatient for possible seasonal allergies. Do not go back into gym routine for 72 hrs. Please stay well hydrated. Sleep at least 8 hrs/day in this time period. Once back at gym, gradually increase weights day by day. Do not max out on first day back. Include a variety of exercises that do not muscle fatigue one particular area. It is recommended that you follow up with a [employer] as well for your recurrent rhabdomyolysis. Watch for signs of muscle aches/pains and please report to the emergency room with any symptoms of worsening pain, fever, chills, or for any symptoms that are concerning for you. It has been a pleasure being a part of the care team taking care of you during your hospital stay. Take care! Pending Studies at Discharge: No Stand-Alone Forms: My [facility], Suicide Prevention Resources Medications and DC Order Prescriptions: New cetirizine 10 mg Tablet 10 mg PO QAM 30 Days Qty: 30 RF: 0 Continued lorazepam 1 mg tablet 1 mg PO DAILY PRN (Reason: Anxiety) RF: 0 Discontinued dextroamphetamine-amphetamine [Adderall XR] 20 mg capsule,extended release 24hr 20 mg PO DAILY RF: 0 escitalopram oxalate [Lexapro] 5 mg tablet 5 mg PO DAILY RF: 0 Vyvanse 30 mg capsule 30 mg PO DAILY RF: 0 Discharge Orders: Discharge Order (Routine); Ordered 06/15/19 Ordered By: Amarilys Santillan Admission Data Admit Date/Time: 06/11/19 01:13 Attending Provider: Luis Anne Admit Provider: Parker Spencer Primary Care Provider: [facility] Other Providers: Parker Spencer ; Josh Lund Other Interventions: Discharge Summary Assessment (RN) Last Done: 06/15/19 15:58 DC Date/Time DO NOT enter until pt leaves facility: 06/15/19 18:00 Supervising Physician Co-Signing Physician Notes Attending Attestation and Discharge Note: Pt seen/examined, chart reviewed in detail, discharge care plan d/w ELKIN Santillan. I agree w/ the hodgson components of her discharge documentation. 19yo male w/ h/o depression, ADHD, prior episodes of rhabdomyolysis, and recent dx of h. pylori who presented with worsening depression, suicidal ideation, and evidence of mild rhabdomyolysis upon admission. Also found to have mildly elevated LFTs. Placed on 1:1 precautions due to suicidal ideation. Rhabdomyolysis was treated with IVF. Increased LFTs - liver us was obtained (normal), acute hepatitis profile was checked (fully negative), EBV titers were sent (no evidence of acute mono). LFTs normalized except mildly elevated t. bili of ~2. CPK nearly normalized prior to d/c to psychiatry. We advised f/u with rheumatology for recurrent rhabdomyolysis and f/u with GI for abnormal LFTs, recent h.pylori infection, and heme+ stool. Discharge exam: gen - NAD, a/o x 3 eyes - no icterus heart - RRR, s1 s2 lungs - CTA b/l abd - soft NT ND BS+ no HSM ext - no edema psych - affect wnl; a/o x 3 Patient is being discharged to inpatient psych from the medical floor for ongoing psychiatric treatment. Luis Anne MD
== END 2019-06-15 18:00 | DRG 558 ==
LOC: ED 22:09 → 2W 06-11 01:13 → SUATTDRO 06-11 01:13 → 2W 06-11 02:54